=== PATIENT | male | born 1960 | race Caucasian/White ===

== ENCOUNTER 2017-06-24 21:34 | Observation (INO) ==
[2017-06-24] MEDS ORDERED: Aspirin 81 MG TAB.CHEW PO ONE (21:44)
--- NOTE | 2017-06-24 21:57 | Emergency Department Note ---
Disposition Clinical Impression: Chest pain Qualifiers: Chest pain type: unspecified Qualified Code(s): R07.9 - Chest pain, unspecified Disposition: Admitted As Inpatient Condition: Good Referrals: Maximo Jiménez MD [Partnered Physician] - Forms: ED Satisfaction Letter Time of Disposition: 22:55 Chest Pain HPI - General Chief Complaint: ED Chest Pain Stated Complaint: "Stent Placed 2wk Ago/CP/Pressure" Time Seen by Provider: 06/24/17 21:44 Source: patient Mode of arrival: ambulatory Limitations: no limitations Vital Signs Reviewed: Yes Nursing Notes Reviewed: Yes - History of Present Illness HPI Narrative: 56-year-old male who is status post stent placement a couple weeks ago in [place] comes in today with pressure-like chest discomfort. Patient does have a history of previous stroke a year ago. The patient had the stent placed in [place]. Patient's risk factor include a strong family history, hypertension, high cholesterol. Pt complaint: chest pain Onset (ago): [employer] Duration: constant Onset: during rest Pain Location: substernal, left chest Severity: moderate Severity scale (1-10): 7 Quality: tightness, aching Pain Radiation: none Improves with: nothing Worsens with: nothing Context: recent surgery (Stent placed 2 weeks ago) Treatments prior to arrival chest pain: none - Related Data Home Medications Medication Instructions Recorded Confirmed Allopurinol [Zyloprim] 300 mg PO DAILY 12/06/14 12/06/14 Gabapentin [Neurontin] 300 mg PO TID 12/06/14 12/06/14 Tizanidine [Zanaflex] 4 mg PO DAILY 12/06/14 12/06/14 Previous Rx's Medication Instructions Recorded Naproxen [Naprosyn] 500 mg PO BID #14 tablet 12/06/14 Allergies Allergy/AdvReac Type Severity Reaction Status Date / Time No Known Allergies Allergy Verified 12/06/14 16:33 All systems ED: reviewed and negative except as stated. Constitutional: Denies: fever, chills, weakness, weight change Eyes: Denies: eye pain, eye discharge, vision change ENT ED: Denies: ear pain, throat pain, dental pain, hearing loss, epistaxis, congestion, dysphagia Cardiovascular: Reports: chest pain. Denies: palpitations, dyspnea on exertion , edema, syncope Respiratory: Denies: cough, dyspnea, wheezes, hemoptysis, stridor Gastrointestinal: Denies: abdominal pain, nausea, vomiting, diarrhea, constipation, hematemesis, melena, hematochezia Genitourinary: Denies: urgency, dysuria, frequency, hematuria Musculoskeletal: Denies: back pain, neck pain, arthralgia, myalgia Integumentary: Denies: rash, abrasion, lesions Neurological: Denies: headache, weakness, numbness, paresthesias, confusion, abnormal gait, vertigo Psychiatric: Denies: anxiety, depression, suicidal thoughts, homicidal thoughts , auditory hallucinations, visual hallucinations Endocrine: Denies: fatigue Hematological/Lymphatic: Denies: easy bleeding, easy bruising Allergic/Immunologic: Denies: facial swelling, urticaria Chest Pain PMH - Past Medical History Medical history: Reports: atrial fibrillation, hypertension Psychiatric history: Reports: no psych history - Social History Smoking Status: Never smoker Alcohol use: Reports: occasionally Drug use: Reports: marijuana Physical Exam - General Limitations: no limitations General appearance: alert, in no apparent distress - Head Head exam: atraumatic, normocephalic, normal inspection - Eye Eye exam: Present: normal appearance, PERRL, EOMI - ENT ENT exam: normal exam, normal oropharynx, mucous membranes moist - Neck Neck exam: Present: normal inspection, full ROM, trachea midline - Chest Chest inspection: Present: normal inspection, symmetric chest wall rise - Respiratory Respiratory exam: Present: normal lung sounds bilaterally - Cardiovascular Cardiovascular exam: Present: regular rate, normal rhythm, normal heart sounds - Abdominal Exam Abdominal exam: Present: soft, Non-Tender. Absent: tenderness, distention, guarding, rebound, rigidity - Extremities Exam Extremities exam: Present: normal inspection, full ROM. Absent: tenderness, pedal edema - Expanded Lower Extremity Exam Gait: observed and normal - Back Exam Back exam: Present: normal inspection, full ROM. Absent: tenderness - Neurological Exam Neurological exam: Present: alert, oriented X3 - Psychiatric Psychiatric exam: Present: normal affect, normal mood - Skin Skin exam: Present: warm, dry, intact, normal color Course - Reevaluation(s) Reevaluation #1: 56-year-old who underwent cardiac catheter and stent placement 2 weeks ago in [place] comes in with chest pressure. Initial troponin is negative, EKG is negative. Chest x-ray shows a questionable rib fracture however the patient clinically is nontender. Time: 22:54 - Consultations Consultation #1: Discussed with Dr. Moore, admit. Time: 22:56 Vital Signs Temperature 98.5 F 06/24/17 21:38 Pulse Rate 115 06/24/17 21:38 Respiratory Rate 16 06/24/17 21:38 Blood Pressure 157/72 06/24/17 21:38 O2 Sat by Pulse Oximetry 100 06/24/17 21:38 Temperature 98.5 F 06/24/17 21:38 Pulse Rate 99 06/24/17 22:00 Respiratory Rate 16 06/24/17 22:00 Blood Pressure 125/80 06/24/17 22:00 O2 Sat by Pulse Oximetry 96 06/24/17 22:00 Oxygen Delivery Oxygen Delivery Room Air Chest Pain - Lab Data Lab results reviewed: Yes I reviewed the patient's lab results. Result diagrams: 06/24/17 21:58 06/24/17 21:58 Lab Results 06/24/17 06/24/17 06/24/17 Range/Units 21:58 21:58 21:58 WBC 12.8 H (4.3-11.1) K/mcL RBC 4.68 (4.19-5.50) M/mcL Hgb 13.7 (12.9-16.9) g/dL Hct 40.0 (37.5-50.1) % MCV 85.5 (83.0-100.0) fL MCH 29.3 (28.0-33.3) pg MCHC 34.3 (31.6-35.5) g/dL RDW 13.7 (11.5-14.5) % Plt Count 321 (140-400) K/mcL MPV 9.8 (9.4-12.4) fL Immature Gran % 0.5 (0-4) % Seg Neutrophils % 61.9 % Lymphocytes % 27.8 % Monocytes % 8.6 % Eosinophils % 0.6 % Basophils % 0.6 % Neutrophils # 7.9 (1.6-8.9) K/mcL Lymphocytes # 3.6 (0.6-4.6) K/mcL Monocytes # 1.1 (0.0-1.3) K/mcL Eosinophils # 0.1 (0.0-0.6) K/mcL Basophils # 0.1 (0.0-0.2) K/mcL PT 11.8 (9.4-12.1) Seconds INR 1.1 APTT 30.9 (26.0-36.0) Seconds Sodium (136-145) mEq/L Potassium (3.5-5.1) mEq/L Chloride (98-107) mEq/L Carbon Dioxide (23-29) mEq/L BUN (6-20) mg/dL Creatinine (0.70-1.30) mg/dL Est GFR ( Amer) (> 60) Est GFR (Non-Af Amer) (> 60) BUN/Creatinine Ratio (6-26) Glucose (70-105) mg/dL Calculated Osmolality (280-300) Calcium (8.6-10.3) mg/dL Troponin I (< 0.04) ng/mL B-Natriuretic Peptide 20 (Less than 100) pg/mL 06/24/17 Range/Units 21:58 WBC (4.3-11.1) K/mcL RBC (4.19-5.50) M/mcL Hgb (12.9-16.9) g/dL Hct (37.5-50.1) % MCV (83.0-100.0) fL MCH (28.0-33.3) pg MCHC (31.6-35.5) g/dL RDW (11.5-14.5) % Plt Count (140-400) K/mcL MPV (9.4-12.4) fL Immature Gran % (0-4) % Seg Neutrophils % % Lymphocytes % % Monocytes % % Eosinophils % % Basophils % % Neutrophils # (1.6-8.9) K/mcL Lymphocytes # (0.6-4.6) K/mcL Monocytes # (0.0-1.3) K/mcL Eosinophils # (0.0-0.6) K/mcL Basophils # (0.0-0.2) K/mcL PT (9.4-12.1) Seconds INR APTT (26.0-36.0) Seconds Sodium 139 (136-145) mEq/L Potassium 3.7 (3.5-5.1) mEq/L Chloride 102 (98-107) mEq/L Carbon Dioxide 28 (23-29) mEq/L BUN 14 (6-20) mg/dL Creatinine 1.37 H (0.70-1.30) mg/dL Est GFR ( Amer) > 60 (> 60) Est GFR (Non-Af Amer) 54 L (> 60) BUN/Creatinine Ratio 10 (6-26) Glucose 100 (70-105) mg/dL Calculated Osmolality 289 (280-300) Calcium 10.7 H (8.6-10.3) mg/dL Troponin I < 0.03 (< 0.04) ng/mL B-Natriuretic Peptide (Less than 100) pg/mL - Radiology Data Radiology results reviewed: Yes I reviewed the patient's radiology results. Chest X-Ray 06/24/17 21:44 IMPRESSION: Possible rib fracture. Recommend rib series or CT for further evaluation. D/ / Pepe Obrien MD / Pepe Obrien MD Interpreting Provider: Pepe Obrien MD - EKG Data EKG attestation: Yes I reviewed and interpreted this EKG. EKG shows normal: sinus rhythm Rate: normal Rhythm: NSR [place]/QRS: normal Interpretation: nonspecific ST-T wave changes Heart Score - Score History: Moderately Suspicious EKG: Normal Age: 45-65 Risk Factors: Equal/Greater than 3 risk factor or history of atherosclerotic disease Troponin: Less than normal limit HEART Score Total: 4
[2017-06-24 22:10] LABS: Basophils # 0.1 K/mcL (0.0-0.2); Basophils % 0.6 %; Eosinophils # 0.1 K/mcL (0.0-0.6); Eosinophils % 0.6 %; Hemoglobin 13.7 g/dL (12.9-16.9); Immature Granulocytes % 0.5 % (0-4); Lymphocytes # 3.6 K/mcL (0.6-4.6); Lymphocytes % 27.8 %; Mean Corpuscular HGB Conc 34.3 g/dL (31.6-35.5); Mean Corpuscular Hemoglobin 29.3 pg (28.0-33.3); Mean Corpuscular Volume 85.5 fL (83.0-100.0); Mean Platelet Volume 9.8 fL (9.4-12.4); Monocytes # 1.1 K/mcL (0.0-1.3); Monocytes % 8.6 %; Neutrophils # 7.9 K/mcL (1.6-8.9); Platelet Count 321 K/mcL (140-400); Red Blood Count 4.68 M/mcL (4.19-5.50); Red Cell Distribution Width 13.7 % (11.5-14.5); Segmented Neutrophils % 61.9 %
[2017-06-24 22:22] LABS: INR 1.1; Prothrombin Time 11.8 Seconds (9.4-12.1)
[2017-06-24 22:25] LABS: Activated Partial Thrombo Time 30.9 Seconds (26.0-36.0)
[2017-06-24 22:32] LABS: BUN/Creatinine Ratio 10 (6-26); Blood Urea Nitrogen 14 mg/dL (6-20); Calcium 10.7 mg/dL (8.6-10.3); Carbon Dioxide 28 mEq/L (23-29); Chloride 102 mEq/L (98-107); Glucose 100 mg/dL (70-105); Osmolality,Calculated 289 (280-300); Potassium 3.7 mEq/L (3.5-5.1); Sodium 139 mEq/L (136-145); Troponin I < 0.03 ng/mL (< 0.04); eGFR For African Americans > 60 (> 60); eGFR For Non-African Americans 54 (> 60)
[2017-06-25] MEDS ORDERED: Acetaminophen 325 MG TABLET PO PRN (01:05)
[2017-06-25] MEDS ORDERED: Naloxone 0.4 MG/ML INJ IVP PRN (01:05)
[2017-06-25] MEDS ORDERED: Nitroglycerin 0.4 MG TAB.SUBL SL PRN (01:10)
[2017-06-25] MEDS ORDERED: 0.9 % Sodium Chloride 1,000 ML IVC SCH (01:15)
[2017-06-25] MEDS: *HR* Heparin 5,000 UNIT/ML VIAL SQ SCH ×2 (01:48→12:16)
--- NOTE | 2017-06-25 02:15 | Internal Med History&Physical ---
Date of Encounter: 06/25/17 Time of Encounter: 00:45 Assessment and Plan (1) Chest pain Current visit: Yes Status: Acute 1. WIll cycle troponins and EKG's. 2. Will order CT chest to further delineate questionable rib abnormality. Patient denies chest wall trauma. 3. Will order ECHO. 4. Consult cardiology given recent PCI/stent ~ 2 weeks ago. Qualifiers: Chest pain type: precordial pain Qualified Code(s): R07.2 - Precordial pain (2) Hypertension Current visit: Yes Status: Chronic 1. Continue home meds as appropriate. 2. Monitor BP and adjust meds as necessary. Qualifiers: Hypertension type: essential hypertension Qualified Code(s): I10 - Essential (primary) hypertension (3) DVT prophylaxis Current visit: Yes Status: Acute 1. Heparin SQ. Internal Medicine - H&P: HPI Chief complaint: chest pain Admitted From: Emergency Dept Plans for Post Hospital Care: Home History of present illness: Mr. Sheehan is a 56 year old male who presents to the ER today with complaints of chest pain and shortness of breath. Symptoms started earlier in the day when he was moving some furniture and boxes at his father's house. Symptoms did not resolve and persisted. He therefore came to the ER for evaluation. Workup was negative, but he continued to have chest pain. He was admitted to hospitalist service for further workup and care. Upon my assessment of the patient, he has minimal chest pain now, roughly 1-2 out of 10. Patient states he had a recent left heart catheterization and stent placement about 2 weeks ago in [place] where he resides. He is up in [place] visiting his father helping take care of his father. He is originally from [facility] but moved to [place] many years ago. He has never had an NV. He had a stress test several weeks ago which was abnormal. This prompted him and his physicians to proceed with left heart catheterization where he was found to have coronary disease and required angioplasty and stenting. He was doing well until earlier today/yesterday when he developed the chest pain. He denies any fevers, cough, congestion, vomiting, or diarrhea. Past Med Surg Social Fam HX - Past Medical History Attestation: Yes The following information was validated with the patient. Source: patient, other (ER notes) Medical history: coronary artery disease, CVA, hypertension Psychiatric history: no psych history - Past Surgical History Surgical History: angioplasty/stent - Social History Smoking Status: Never smoker Smokeless Tobacco Status: No Alcohol use: occasionally Drug use: marijuana Current living situation: Home, With Family Activity Level: Independent ambulation Recent Out of Country Travel Within the Last 8 Weeks: No - Family History Mother Age: 68 Living Status: Cause of : lymphoma Hx Family Cancer: Yes Father Age: 80 Living Status: Still Living Hx Family Cardiac Disorders: Yes Internal Medicine - H&P: Meds Allopurinol [Zyloprim] 300 mg PO DAILY 12/06/14 [History] Gabapentin [Neurontin] 600 mg PO TID 12/06/14 [History] Tizanidine [Zanaflex] 4 mg PO TID 12/06/14 [History] Aspirin [Lo-Dose Aspirin EC] 81 mg PO DAILY 06/25/17 [History] Buspirone HCl [Buspar] 15 mg PO BID 06/25/17 [History] Clopidogrel [Plavix] 75 mg PO DAILY 06/25/17 [History] Lisinopril [Zestril] 10 mg PO DAILY 06/25/17 [History] Multivitamin [Multivitamins] 1 each PO DAILY 06/25/17 [History] Ubidecarenone [Coq10] 50 mg PO DAILY 06/25/17 [History] Vitamin B Complex Vit C No.4 [Super B Complex] 1 cap PO DAILY 06/25/17 [History] Vitamin E 1,000 unit PO DAILY 06/25/17 [History] 3 Allergy/AdvReac Type Severity Reaction Status Date / Time No Known Allergies Allergy Verified 12/06/14 16:33 - Constitutional Constitutional: no chills, no fever(s), no night sweats - EENT Eyes: no blurry vision, no change in vision Ears: no ear pain, no tinnitus Nose, mouth and throat: no nasal congestion, no sinus pressure, no sore throat - Cardiovascular Cardiovascular ROS IM: chest pain, diaphoresis, dyspnea, dyspnea on exertion, no orthopnea, no paroxysmal nocturnal dyspnea, no syncope - Respiratory Respiratory: no cough, no hemoptysis, no chest congestion, no excessive phlegm production, no change in phlegm color, no pain with cough - Gastrointestinal Gastrointestinal: no abdominal pain, no diarrhea, no hematemesis, no hematochezia, no melena, no nausea, no vomiting - Genitourinary Genitourinary ROS male: no dysuria, no flank pain, no hematuria - Musculoskeletal Musculoskeletal ROS IM: no arthralgias, no back pain - Integumentary Integumentary IM: no rash, no jaundice - Neurological Neurological ROS: no dizziness, no focal weakness, no frequent falls, no headache(s) - Psychiatric Psychiatric: no anxiety, no depression - Endocrine Endocrine IM: no polydipsia, no polyuria - Hematologic/Lymphatic Hematologic/Lymphatic: no easy bruising, no lymphadenopathy - Allergic/Immunologic Allergic/Immunologic: no wheezing, no GI upset with certain foods - Constitutional Vitals: Temp Pulse Resp BP Pulse Ox 98.7 F 96 15 107/70 100 06/24/17 23:42 06/24/17 23:42 06/24/17 23:42 06/24/17 23:42 06/24/17 23:42 General appearance: Present: cooperative, A&O X 3, pleasant, no acute distress, answers questions appropriately - Head Head exam: Present: atraumatic, normal inspection - Eye Eye exam: Present: EOMI, normal appearance, PERRL. Absent: scleral icterus Pupils: Present: normal accommodation - ENT ENT exam: Present: mucous membranes dry, normal exam, normal oropharynx - Neck Neck exam general surgery: Present: full ROM, supple. Absent: tenderness, nuchal rigidity, thyromegaly - Expanded Neck Exam Neck exam: Absent: carotid bruit - Respiratory Respiratory exam: Present: CTAB. Absent: chest wall tenderness, rales, respiratory distress, rhonchi, wheezes - Cardiovascular Cardiovascular exam: Present: RRR, +S1, +S2. Absent: diastolic murmur, systolic murmur - GI/Abdominal GI/Abdominal exam: Present: normal bowel sounds, soft. Absent: hepatomegaly, mass, splenomegaly, tenderness - Extremities Exam Extremities exam: Present: full ROM, normal capillary refill, radial pulses palpable and symmetrical. Absent: calf tenderness, joint swelling, tenderness, warm - Back Exam Back exam: Absent: CVA tenderness (L), CVA tenderness (R) - Neurological Exam Neurological exam: Present: alert, CN II-XII intact, oriented X3, no focal deficits, strengths equal and symetr throughout - Psychiatric Psychiatric exam: Present: normal affect, normal mood - Skin Skin exam: Present: dry, warm. Absent: rash Internal Med - H&P Results - Labs CBC & Chem 7: 06/24/17 21:58 06/24/17 21:58 - EKG Data -: EKG Interpreted by Myself - EKG Data Prior EKG available for review: no EKG comments: 06/25/17 02:18 NSR; no acute ST-T changes - Diagnostic Studies Chest x-ray Status: image reviewed by me (negative except for possible rib fracture -- noted by radiology)
[2017-06-25] MEDS: *HR* OxyCODONE Immed Rel 5 MG TABLET PO PRN ×2 (02:25→09:22)
[2017-06-25 06:22] LABS: Eosinophils % 1.6 %; Hematocrit 39.7 % (37.5-50.1); Hemoglobin 13.2 g/dL (12.9-16.9); Immature Granulocytes % 0.5 % (0-4); Lymphocytes % 36.2 %; Mean Corpuscular HGB Conc 33.2 g/dL (31.6-35.5); Mean Corpuscular Hemoglobin 28.9 pg (28.0-33.3); Mean Corpuscular Volume 86.9 fL (83.0-100.0); Mean Platelet Volume 9.9 fL (9.4-12.4); Monocytes % 7.7 %; Platelet Count 301 K/mcL (140-400); Red Blood Count 4.57 M/mcL (4.19-5.50); Red Cell Distribution Width 13.5 % (11.5-14.5); Segmented Neutrophils % 53.2 %
[2017-06-25 06:23] LABS: Basophils # 0.1 K/mcL (0.0-0.2); Basophils % 0.8 %; Eosinophils # 0.2 K/mcL (0.0-0.6); Lymphocytes # 3.7 K/mcL (0.6-4.6); Monocytes # 0.8 K/mcL (0.0-1.3); Neutrophils # 5.5 K/mcL (1.6-8.9)
[2017-06-25 06:35] LABS: INR 1.1; Prothrombin Time 11.5 Seconds (9.4-12.1)
[2017-06-25 06:38] LABS: Activated Partial Thrombo Time 30.4 Seconds (26.0-36.0); Troponin I < 0.03 ng/mL (< 0.04)
[2017-06-25 06:42] LABS: Alanine Aminotransferase 32 Units/L (7-52); Albumin 4.3 g/dL (3.5-5.7); Albumin/Globulin Ratio 1.7 (1.1-2.2); Alkaline Phosphatase 55 Units/L (34-104); Aspartate Amino Transferase 39 Units/L (13-39); BUN/Creatinine Ratio 10 (6-26); Bilirubin,Total 0.5 mg/dL (0.3-1.0); Blood Urea Nitrogen 13 mg/dL (6-20); Calcium 9.8 mg/dL (8.6-10.3); Carbon Dioxide 24 mEq/L (23-29); Chloride 107 mEq/L (98-107); Chol/HDL Ratio 4.4 (0-4.9); Cholesterol 157 mg/dL (< 200); Globulin 2.5 g/dL (2.4-3.5); Glucose 99 mg/dL (70-105); HDL Cholesterol 36 mg/dL (40-59); LDL Cholesterol,Calculated 86 mg/dL (0-99); Magnesium 2.2 mg/dL (1.6-2.6); Osmolality,Calculated 288 (280-300); Potassium 3.8 mEq/L (3.5-5.1); Sodium 139 mEq/L (136-145); Total Protein 6.8 g/dL (6.4-8.9); Triglycerides 174 mg/dL (< 150); eGFR For African Americans > 60 (> 60); eGFR For Non-African Americans 57 (> 60)
[2017-06-25] MEDS ORDERED: Aspirin Enteric Coated 81 MG Tablet PO SCH (09:00)
[2017-06-25] MEDS ORDERED: Multivit/Ca/Min/Fe/FA 1 TAB TABLET PO SCH (09:00)
[2017-06-25] MEDS: Gabapentin 300 MG CAPSULE PO SCH ×2 (09:22→14:02)
[2017-06-25] MEDS: tiZANidine 4 MG TABLET PO SCH ×2 (09:22→14:02)
--- NOTE | 2017-06-25 10:50 | Cardiology Consult Note ---
<Anali Cole - Last Filed: 06/25/17 10:53> Date of Encounter: 06/25/17 Time of Encounter: 10:30 Assessment and Plan (1) Chest pain Status: Acute Atypical chest pain symptoms; suspect musculoskeletal in etiology. Troponin negative thus far. No acute ST/T wave abnormalities. Reports recent PCI 2 weeks ago at [facility]. Reports compliance with DAPT. Continue asa and statin. Given hx of CAD, will add low dose betablocker. No further cardiac testing recommended. Anticipate sign-off once seen by Dr. Alfredo Laura. Qualifiers: Chest pain type: precordial pain Qualified Code(s): R07.2 - Precordial pain Discussion w patient/family: The assessment and plan as outlined above was discussed with the patient and/or family members who expressed understanding and agreement. All questions were answered. Thank you for involving us in the care of your patient. Please call with any questions. The patient will be discussed and reviewed with Dr. Alfredo Laura; changes to be made accordingly. History of Present Illness Consult date: 06/25/17 Requesting physician: Juni Kumar Consult reason: Chest pain Chief complaint: Chest pain History of present illness: Mr. Sheehan is a 56 year old male with PMHx significant for CAD s/p recent PCI and reported CVA (November 2016) who presented to the ED with complaints of chest pain after moving heavy boxes yesterday. Pain worsens with movement, especially when lifting arms over head. He reports PCI nearly 2 weeks ago after abnormal stress test. He states his PCP ordered stress test d/t CVA. He denies any anginal symptoms prior to event. Troponin negative x2. No acute ST/T wave abnormalities noted per ECG. Past Med Surg Social Fam HX - Past Medical History Attestation: Yes The following information was validated with the patient. Source: patient Medical history: coronary artery disease, CVA, hypertension Psychiatric history: no psych history - Past Surgical History Surgical History: angioplasty/stent - Social History Smoking Status: Never smoker Smokeless Tobacco Status: No Alcohol use: occasionally Drug use: marijuana - Family History Mother Age: 68 Living Status: Cause of : lymphoma Hx Family Cancer: Yes Father Age: 80 Living Status: Still Living Hx Family Cardiac Disorders: Yes Medications and Allergies Allopurinol [Zyloprim] 300 mg PO DAILY 12/06/14 [History] Gabapentin [Neurontin] 600 mg PO TID 12/06/14 [History] Tizanidine [Zanaflex] 4 mg PO TID 12/06/14 [History] Aspirin [Lo-Dose Aspirin EC] 81 mg PO DAILY 06/25/17 [History] Atorvastatin Calcium [Lipitor] 20 mg PO DAILY 06/25/17 [History] Buspirone HCl [Buspar] 15 mg PO BID 06/25/17 [History] Clopidogrel [Plavix] 75 mg PO DAILY 06/25/17 [History] Lisinopril [Zestril] 10 mg PO DAILY 06/25/17 [History] Multivitamin [Multivitamins] 1 each PO DAILY 06/25/17 [History] Ubidecarenone [Coq10] 50 mg PO DAILY 06/25/17 [History] Vitamin B Complex Vit C No.4 [Super B Complex] 1 cap PO DAILY 06/25/17 [History] Vitamin E 1,000 unit PO DAILY 06/25/17 [History] 3 Allergy/AdvReac Type Severity Reaction Status Date / Time No Known Allergies Allergy Verified 12/06/14 16:33 All Systems Review: The remainder of the systems were reviewed and are negative - Cardiovascular Cardiovascular: as per HPI Physical Examination Vital Signs, Last 4 Hours Temp Pulse Resp BP Pulse Ox 06/25/17 06:52 98.0 F 86 18 134/81 100 General: Conversant, No Apparent Distress HEENT: Atraumatic, Normocephaly, Mucus Membranes Moist Cardiac: Reg Rate and Rhythm, Normal S1 and S2 Lungs: Normal Breath Sounds Neuro: Alert and responsive Abdomen: Soft Skin: No rashes noted on visualized skin Extremities: No Edema, Normal Pulses Results 06/25/17 04:40 06/25/17 04:40 Lab Results 06/25/17 06/25/17 06/25/17 04:40 04:40 04:40 WBC 10.2 Hgb 13.2 Hct 39.7 Plt Count 301 INR 1.1 APTT 30.4 Sodium 139 Potassium 3.8 Chloride 107 Carbon Dioxide 24 BUN 13 Creatinine 1.30 Glucose 99 Calcium 9.8 Magnesium 2.2 Total Bilirubin 0.5 AST 39 ALT 32 Alkaline Phosphatase 55 Troponin I < 0.03 Active Medications Acetaminophen (Tylenol) 650 mg PO Q6HR PRN PRN Reason: Mild Pain/Fever Stop: 12/25/17 01:06 Allopurinol (Zyloprim) 300 mg PO DAILY [facility] Stop: 12/25/17 09:01 Last Admin: 06/25/17 09:22 Dose: 300 mg Aspirin (Aspirin Ec) 81 mg PO DAILY [facility] Stop: 12/25/17 09:01 Last Admin: 06/25/17 09:22 Dose: 81 mg Buspirone HCl (Buspar) 15 mg PO BID [facility] Stop: 12/25/17 09:01 Last Admin: 06/25/17 09:22 Dose: 15 mg Clopidogrel Bisulfate (Plavix) 75 mg PO DAILY [facility] Stop: 12/25/17 09:01 Last Admin: 06/25/17 09:22 Dose: 75 mg Gabapentin (Neurontin) 600 mg PO TID [facility] Stop: 12/25/17 09:01 Last Admin: 06/25/17 09:22 Dose: 600 mg Heparin Sodium (Porcine) (Heparin) 5,000 unit SQ Q8HCO [facility] Stop: 12/25/17 01:16 Last Admin: 06/25/17 01:48 Dose: 5,000 unit Sodium Chloride (0.9 % Sodium Chloride) 1,000 mls @ 100 mls/hr IVC .Q10H [facility] Stop: 06/25/17 21:14 Last Admin: 06/25/17 01:49 Dose: 100 mls/hr Multivitamins/Calcium (Thera M Plus) 1 tab PO DAILY [facility] Stop: 12/25/17 09:01 Last Admin: 06/25/17 09:22 Dose: 1 tab Naloxone HCl (Narcan) 0.4 mg IVP Q2MIN PRN PRN Reason: SEE COMMENTS Stop: 12/25/17 01:06 Nitroglycerin (Nitroglycerin) 0.4 mg SL Q5MIN PRN PRN Reason: Chest Pain Stop: 12/25/17 01:11 Oxycodone HCl (Roxicodone) 10 mg PO Q6HR PRN PRN Reason: Chest Pain Stop: 12/25/17 01:06 Last Admin: 06/25/17 09:22 Dose: 10 mg Tizanidine HCl (Zanaflex) 4 mg PO TID [facility] Stop: 12/25/17 09:01 Last Admin: 06/25/17 09:22 Dose: 4 mg - Imaging and Cardiology Other Results: 12 hour tele: avg HR=89 SR. No significant event noted. - EKG Interpretation EKG results cardiology: personally reviewed Consult Discharge Plan - Plan Instructions: Chest Pain (DC), Pulmonary Nodules (DC) Additional Instructions: A CT scan of her chest showed multiple pulmonary nodules measuring up to 6 mm. It is recommended that you have a repeat chest CT in 12 months. Please follow- up with your primary care physician to arrange. Referrals: NONE,PCP [Primary Care Provider] - <Alfredo Laura - Last Filed: 07/02/17 13:37> Date of Encounter: 07/02/17 - Attending Attestation I have personally performed a face to face evaluation on this patient. I have reviewed and agree with the care plan. History and Exam by me shows: Atypical chest pain. If ALEX negative, don't expect further work up will be needed. Assessment and Plan Discussion w patient/family: The assessment and plan as outlined above was discussed with the patient and/or family members who expressed understanding and agreement. All questions were answered. Thank you for involving us in the care of your patient. Please call with any questions. History of Present Illness History of present illness: Mr. Sheehan is a 56 year old male All Systems Review: The remainder of the systems were reviewed and are negative Results 06/25/17 04:40 06/25/17 04:40
[2017-06-25] MEDS ORDERED: Metoprolol XL (24 HR) Succ 25 MG TAB.ER.24H PO SCH (11:00)
[2017-06-25 11:25] VITALS: BP 123/58
--- NOTE | 2017-06-25 14:54 | Discharge Summary ---
Orders not resulted at time of discharge: Pending orders 06/25/17 06:00 ECG 12 lead ECG [ECG] AM 0600 Date of Encounter: 06/25/17 Time of Encounter: 14:51 - Discharge Diagnosis (1) CAD (coronary artery disease) Priority: Primary Status: Acute Qualifiers: Coronary Disease-Associated Artery/Lesion type: [place] artery [place] vs. transplanted heart: [place] heart Associated angina: without angina Qualified Code(s): I25.10 - Atherosclerotic heart disease of [place] coronary artery without angina pectoris (2) Hypertension Priority: Secondary Status: Chronic Qualifiers: Hypertension type: essential hypertension Qualified Code(s): I10 - Essential (primary) hypertension Hospital course: Mr. Sheehan is a 56 year old male with PMH CAD and hypertension who presented to [facility] on 06/24/2017 with complaints of chest pain. He recently underwent a left heart catheterization in [place] with successful PCI per patient report. He reports compliance with dual antiplatelet therapy. Presented with chest pain that occurred after heavy lifting. Serial troponins negative, EKG without acute ST changes. Chest CT with numerous lung nodules measuring up to 6 mm otherwise non-acute. TTE with EF 55%, mild diastolic dysfunction, no valvular abnormalities, no wall motion abnormalities. Evaluated by cardiology who suspected atypical chest pain, likely musculoskeletal as chest pain occurred after lifting heavy object and is reproducible on exam. No further cardiac workup indicated. Patient advised to return to ER if chest pain/SOB recurs. 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 Discharge discussed with: patient, family - Time Spent with Patient Total time spent providing and/or coordinating discharge services: - Discharge Medications Home Medications: Allopurinol [Zyloprim] 300 mg PO DAILY 12/06/14 [History] Gabapentin [Neurontin] 600 mg PO TID 12/06/14 [History] Tizanidine [Zanaflex] 4 mg PO TID 12/06/14 [History] Aspirin [Lo-Dose Aspirin EC] 81 mg PO DAILY 06/25/17 [History] Atorvastatin Calcium [Lipitor] 20 mg PO DAILY 06/25/17 [History] Buspirone HCl [Buspar] 15 mg PO BID 06/25/17 [History] Clopidogrel [Plavix] 75 mg PO DAILY 06/25/17 [History] Lisinopril [Zestril] 10 mg PO DAILY 06/25/17 [History] Multivitamin [Multivitamins] 1 each PO DAILY 06/25/17 [History] Ubidecarenone [Coq10] 50 mg PO DAILY 06/25/17 [History] Vitamin B Complex Vit C No.4 [Super B Complex] 1 cap PO DAILY 06/25/17 [History] Vitamin E 1,000 unit PO DAILY 06/25/17 [History] Allergies/Adverse Reactions: 3 Allergy/AdvReac Type Severity Reaction Status Date / Time No Known Allergies Allergy Verified 12/06/14 16:33 Date of admission: 06/24/17 23:10 Primary care physician: PCP NONE Consults: 06/25/17 01:08 Consult to Physician [CONS] Routine Consulting Provider: Melissa Stack Reason for Consult: chest pain; recent PCI/stent 2 weeks ago in [place] Call Completed: No Discharging clinician: Fernanda Harley Anticipated date of discharge: 06/25/17 - Constitutional Vitals: Temp Pulse Resp BP Pulse Ox 98.7 F 95 18 123/58 97 06/25/17 11:23 06/25/17 11:23 06/25/17 11:23 06/25/17 11:23 06/25/17 11:23 General appearance: Present: cooperative, A&O X 3, pleasant, no acute distress, answers questions appropriately - Head Head exam: Present: atraumatic, normocephalic - Eye Eye exam: Present: PERRL, conjuntiva pink, sclera anicteric Pupils: Present: PERRL - Neck Neck exam general surgery: Present: supple, trachea midline. Absent: lymphadenopathy - Respiratory Respiratory exam: Present: chest wall tenderness, CTAB. Absent: accessory muscle use, rales, rhonchi, wheezes - Cardiovascular Cardiovascular exam: Present: RRR, +S1, +S2. Absent: diastolic murmur, gallop, rubs, systolic murmur - GI/Abdominal GI/Abdominal exam: Present: normal bowel sounds, soft, no peritoneal signs. Absent: distended, tenderness - Extremities Exam Extremities exam: Present: warm, radial pulses palpable and symmetrical. Absent : calf tenderness, cyanotic, pedal edema - Neurological Exam Neurological exam: Present: CN II-XII intact, oriented X3, no focal deficits. Absent: pronater drift, facial droop, speech deficit - Skin Skin exam: Present: dry, intact - Patient Status Disposition: Home, Self-Care Condition: Good Functional capacity at discharge: independent ambulation Overall status at discharge: patient is back to baseline - Discharge Instructions Instructions: Pulmonary Nodules (DC), Chest Pain (DC) Follow Up With: NONE,PCP [Primary Care Provider] - Additional Instructions: A CT scan of her chest showed multiple pulmonary nodules measuring up to 6 mm. It is recommended that you have a repeat chest CT in 12 months. Please follow- up with your primary care physician to arrange. - Diet and Activity Activity: increase activity as tolerated Diet: advance to your usual diet
--- NOTE | 2017-06-26 16:23 | Electrocardiograph Report ---
[place] [id number] Test Date: 2017-06-24 Pat Name: Parrish Sheehan Department: 104 Room: 3B33 Gender: M [employer]: : 1960 Requested By: Alfredo Hernandez Order Number: [id number] Reading MD: Grover Humphries DO Measurements Intervals [place] Rate: 110 P: 5 ID: 119 QRS: 79 QRSD: 98 T: 70 QT: 323 QTc: 388 Interpretive Statements SINUS TACHYCARDIA WITH SHORT ID INTERVAL NONSPECIFIC ST & T-WAVE ABNORMALITY Electronically Signed On 06-26-2017 16:21:38 EST by Grover Humphries DO
== END 2017-06-25 16:21 | disposition home or self-care (01) ==
LOC: 3BNU 21:34 → EMEROO 21:34 → 3BNU 23:20
PROVIDERS: ADMIT Pediatrics; ATTEND Registered Nurse

== ENCOUNTER 2019-10-31 02:40 | Observation (INO) ==
[2019-10-31 03:00] LABS: Basophils # 0.1 K/mcL (0.0-0.2); Eosinophils # 0.3 K/mcL (0.0-0.6); Eosinophils % 3.1 %; Hemoglobin 14.4 g/dL (12.9-16.9); Immature Granulocytes % 1.2 % (0-4); Lymphocytes # 3.1 K/mcL (0.6-4.6); Lymphocytes % 37.3 %; Mean Corpuscular HGB Conc 32.7 g/dL (31.6-35.5); Mean Corpuscular Hemoglobin 29.4 pg (28.0-33.3); Mean Corpuscular Volume 89.8 fL (83.0-100.0); Mean Platelet Volume 10.1 fL (9.4-12.4); Monocytes # 0.8 K/mcL (0.0-1.3); Monocytes % 9.9 %; Neutrophils # 3.9 K/mcL (1.6-8.9); Platelet Count 275 K/mcL (140-400); Red Cell Distribution Width 13.6 % (11.5-14.5); Segmented Neutrophils % 47.5 %; White Blood Count 8.2 K/mcL (4.3-11.1)
[2019-10-31 03:21] LABS: Alanine Aminotransferase 78 Units/L (7-52); Albumin 4.2 g/dL (3.5-5.7); Albumin/Globulin Ratio 1.4 (1.1-2.2); Alkaline Phosphatase 58 Units/L (34-104); Aspartate Amino Transferase 70 Units/L (13-39); BUN/Creatinine Ratio 10 (6-26); Bilirubin,Total 0.5 mg/dL (0.3-1.0); Blood Urea Nitrogen 16 mg/dL (8-23); Calcium 9.7 mg/dL (8.6-10.3); Carbon Dioxide 25 mEq/L (23-29); Chloride 104 mEq/L (98-107); Glucose 128 mg/dL (70-105); Osmolality,Calculated 283 (280-300); Sodium 135 mEq/L (136-145); Total Protein 7.2 g/dL (6.4-8.9); Troponin I < 0.03 ng/mL (< 0.04); eGFR For African Americans 53 (> 60); eGFR For Non-African Americans 44 (> 60)
[2019-10-31 03:29] LABS: Bilirubin,Urine Negative (Negative); Blood,Urine Negative (Negative); Clarity,Urine Clear (Clear); Color,Urine Light-Yellow (Yellow); Glucose,Urine (UA) Normal (Normal); Ketones,Urine Negative (Negative); Leukocyte Esterase,Urine Negative (Negative); Nitrite,Urine Negative (Negative); PH,Urine 5.5 pH Units (5.0-8.0); Protein,Urine Negative (Neg-Trace); Specific Gravity,Urine 1.015 (1.010-1.025); Urobilinogen,Urine Normal (Normal)
[2019-10-31 03:34] LABS: Amphetamine Screen,Urine Positive ng/mL (Cutoff=1000); Barbiturate Screen,Urine Negative ng/mL (Cutoff=200); Benzodiazepines Screen,Urine Negative ng/mL (Cutoff=200); Cannabinoid Screen,Urine Positive ng/mL (Cutoff = 50); Cocaine Screen,Urine Negative ng/mL (Cutoff= 300); Opiate Screen,Urine Negative ng/mL (Cutoff=300); Phencyclidine Screen,Urine Negative ng/mL (Cutoff=25)
[2019-10-31 04:47] LABS: Ethanol < 10 mg/dL (Less than 10)
[2019-10-31 05:49] LABS: Creatine Kinase 675 Units/L (30-223); Magnesium 2.2 mg/dL (1.6-2.6); Phosphorous 4.9 mg/dL (2.7-4.5)
[2019-10-31] MEDS ORDERED: Ondansetron 4 MG/2 ML VIAL IVP PRN (06:15)
[2019-10-31] MEDS ORDERED: Naloxone 0.4 MG/ML INJ IVP PRN (06:15)
[2019-10-31] MEDS ORDERED: Perflutren Lipid Microsphere 1.3 ML in 0.9 % Sodium Chloride 8.7 ML IVP PRN (06:17)
[2019-10-31] MEDS: 0.9 % Sodium Chloride 1,000 ML IVC SCH ×4 (06:45→20:40)
[2019-10-31 07:15] LABS: Hepatitis B Surface Antigen Nonreactive (Nonreactive)
[2019-10-31 07:44] LABS: HIV-1&2 Antibody & p24 Ag Nonreactive (Nonreactive); Hepatitis B Core IgM Nonreactive (Nonreactive)
[2019-10-31 07:46] LABS: Hepatitis A Antibody IgM Nonreactive (Nonreactive)
[2019-10-31 10:11] LABS: Hepatitis C Virus Antibody Reactive (Nonreactive)
[2019-10-31] MEDS: *HR* Heparin 5,000 UNIT/ML VIAL SQ SCH ×2 (14:40→22:08)
[2019-10-31 14:56] LABS: Potassium,Urine 68.3 mEq/L
[2019-10-31] MEDS ORDERED: clonazePAM 0.5 MG TABLET PO ONE (20:48)
[2019-10-31] MEDS ORDERED: Melatonin 3 MG TABLET PO ONE (20:48)
[2019-10-31] MEDS ORDERED: Acetaminophen IV 500 MG/50 ML BAG IVPB PRN (21:10)
[2019-11-01] MEDS: *HR* Heparin 5,000 UNIT/ML VIAL SQ SCH (04:26)
[2019-11-01 06:24] LABS: Hematocrit 40.4 % (37.5-50.1); Hemoglobin 13.3 g/dL (12.9-16.9); Mean Corpuscular HGB Conc 32.9 g/dL (31.6-35.5); Mean Corpuscular Hemoglobin 29.4 pg (28.0-33.3); Mean Corpuscular Volume 89.2 fL (83.0-100.0); Mean Platelet Volume 11.7 fL (9.4-12.4); Platelet Count 181 K/mcL (140-400); Red Blood Count 4.53 M/mcL (4.19-5.50); Red Cell Distribution Width 13.7 % (11.5-14.5); White Blood Count 6.9 K/mcL (4.3-11.1)
[2019-11-01 06:35] LABS: Alanine Aminotransferase 58 Units/L (7-52); Albumin 3.3 g/dL (3.5-5.7); Albumin/Globulin Ratio 1.3 (1.1-2.2); Alkaline Phosphatase 46 Units/L (34-104); Aspartate Amino Transferase 55 Units/L (13-39); BUN/Creatinine Ratio 11 (6-26); Bilirubin,Total 0.6 mg/dL (0.3-1.0); Blood Urea Nitrogen 12 mg/dL (8-23); Calcium 8.7 mg/dL (8.6-10.3); Carbon Dioxide 20 mEq/L (23-29); Chloride 109 mEq/L (98-107); Globulin 2.5 g/dL (2.4-3.5); Glucose 103 mg/dL (70-105); Osmolality,Calculated 282 (280-300); Potassium 4.8 mEq/L (3.5-5.1); Sodium 136 mEq/L (136-145); Total Protein 5.8 g/dL (6.4-8.9); eGFR For African Americans > 60 (> 60); eGFR For Non-African Americans > 60 (> 60)
[2019-11-01 07:16] VITALS: BP 171/88
[2019-11-01] MEDS ORDERED: tiZANidine 4 MG TABLET PO PRN (07:51)
[2019-11-01] MEDS ORDERED: lisinopriL 10 MG TABLET PO SCH (09:00)
[2019-11-01] MEDS ORDERED: Gabapentin 400 MG CAPSULE PO SCH (09:00)
[2019-11-01] MEDS ORDERED: Aspirin Enteric Coated 81 MG Tablet PO SCH (09:00)
[2019-11-01] MEDS ORDERED: clonazePAM 0.5 MG TABLET PO SCH (09:00)
[2019-11-01] MEDS ORDERED: amLODIPine 5 MG TABLET PO SCH (09:00)
[2019-11-01] MEDS ORDERED: allopurinoL 300 MG TABLET PO SCH (09:00)
[2019-11-01] MEDS ORDERED: Cholecalciferol (D-3) 1,000 UNIT (25MCG) TABLET PO SCH (09:00)
== END 2019-11-01 11:45 | disposition home or self-care (01) ==
LOC: EMEROOARM 02:40 → ICNU 02:40 → SUATTDRO 06:07 → ICNU 06:30 → 3BNU 17:03
PROVIDERS: ADMIT Family Medicine; ATTEND Internal Medicine

== ENCOUNTER 2020-05-21 16:45 | Inpatient (IN) ==
[2020-05-21] MEDS ORDERED: 0.9 % Sodium Chloride 1,000 ML IVC ONE ×2 (16:59→18:06)
[2020-05-21] MEDS ORDERED: Ondansetron 4 MG/2 ML VIAL IVP ONE (16:59)
[2020-05-21 18:09] LABS: Troponin I 0.06 ng/mL (< 0.04)
[2020-05-21] MEDS ORDERED: Aspirin 81 MG TAB.CHEW PO STA (18:27)
[2020-05-21 18:49] LABS: Bacteria,Urine Few per hpf (None-Few); Bilirubin,Urine Negative (Negative); Blood,Urine Large (Negative); Budding Yeast,Urine Few per hpf (None Seen); Clarity,Urine Clear (Clear); Color,Urine Yellow (Yellow); Glucose,Urine (UA) 100 mg/dL (Normal); Ketones,Urine Negative (Negative); Leukocyte Esterase,Urine Moderate (Negative); Nitrite,Urine Negative (Negative); PH,Urine 6.5 pH Units (5.0-8.0); Protein,Urine >=300 mg/dL (Neg-Trace); RBC,Urine 0-3 per hpf (0-3); Specific Gravity,Urine 1.016 (1.010-1.025); Urobilinogen,Urine Normal (Normal); WBC,Urine TNTC per hpf (0-3)
[2020-05-21] MEDS ORDERED: cefTRIAXone 2,000 MG in Water for inj. (sterile) 20 ML IVP ONE (18:51)
[2020-05-21] MEDS ORDERED: Naloxone 0.4 MG/ML INJ IVP PRN (20:24)
[2020-05-21] MEDS ORDERED: Ondansetron 4 MG/2 ML VIAL IVP PRN (20:24)
[2020-05-21] MEDS ORDERED: Acetaminophen 325 MG TABLET PO PRN (20:24)
[2020-05-21 21:08] LABS: Amphetamine Screen,Urine Negative ng/mL (Cutoff=1000); Barbiturate Screen,Urine Negative ng/mL (Cutoff=200); Benzodiazepines Screen,Urine Negative ng/mL (Cutoff=200); Cannabinoid Screen,Urine Positive ng/mL (Cutoff = 50); Cocaine Screen,Urine Negative ng/mL (Cutoff= 300); Opiate Screen,Urine Negative ng/mL (Cutoff=300); Phencyclidine Screen,Urine Negative ng/mL (Cutoff=25)
[2020-05-21] MEDS: *HR* OxyCODONE Immed Rel 5 MG TABLET PO PRN (21:30)
[2020-05-21] MEDS: Ringers Solution, Lactated 1,000 ML IVC SCH (21:43)
[2020-05-22 00:46] LABS: Hematocrit 34.5 % (37.5-50.1); Hemoglobin 12.2 g/dL (12.9-16.9); Mean Corpuscular HGB Conc 35.4 g/dL (31.6-35.5); Mean Corpuscular Hemoglobin 28.8 pg (28.0-33.3); Mean Corpuscular Volume 81.4 fL (83.0-100.0); Mean Platelet Volume 11.6 fL (9.4-12.4); Platelet Count 269 K/mcL (140-400); Red Blood Count 4.24 M/mcL (4.19-5.50); Red Cell Distribution Width 13.2 % (11.5-14.5); White Blood Count 19.7 K/mcL (4.3-11.1)
[2020-05-22 01:06] LABS: Albumin 2.9 g/dL (3.5-5.7); Albumin/Globulin Ratio 0.9 (1.1-2.2); Bilirubin,Total 0.6 mg/dL (0.3-1.0); Calcium 7.6 mg/dL (8.6-10.3); Globulin 3.4 g/dL (2.4-3.5); Phosphorous 4.7 mg/dL (2.7-4.5); Potassium 3.5 mEq/L (3.5-5.1); Total Protein 6.3 g/dL (6.4-8.9)
[2020-05-22] MEDS: *HR* OxyCODONE Immed Rel 5 MG TABLET PO PRN ×3 (05:06→23:25)
[2020-05-22] MEDS: *HR* Heparin 5,000 UNIT/ML VIAL SQ SCH ×2 (05:10→17:49)
[2020-05-22 06:36] LABS: Basophils % 0.2 %; Hematocrit 33.8 % (37.5-50.1); Hemoglobin 11.6 g/dL (12.9-16.9); Immature Granulocytes % 1.3 % (0-4); Lymphocytes # 0.7 K/mcL (0.6-4.6); Lymphocytes % 3.8 %; Mean Corpuscular HGB Conc 34.3 g/dL (31.6-35.5); Mean Corpuscular Hemoglobin 28.2 pg (28.0-33.3); Mean Corpuscular Volume 82.2 fL (83.0-100.0); Mean Platelet Volume 11.8 fL (9.4-12.4); Monocytes # 1.3 K/mcL (0.0-1.3); Monocytes % 6.8 %; Platelet Count 268 K/mcL (140-400); Red Blood Count 4.11 M/mcL (4.19-5.50); Red Cell Distribution Width 13.2 % (11.5-14.5); Segmented Neutrophils % 87.9 %; White Blood Count 19.2 K/mcL (4.3-11.1)
[2020-05-22 06:46] LABS: Neutrophils # 16.9 K/mcL (1.6-8.9)
[2020-05-22] MEDS: Ringers Solution, Lactated 1,000 ML IVC SCH (06:48)
[2020-05-22 07:02] LABS: Calcium 7.7 mg/dL (8.6-10.3); Potassium 3.4 mEq/L (3.5-5.1)
[2020-05-22 07:05] LABS: Platelet Estimate Normal (Normal)
[2020-05-22] MEDS ORDERED: cefTRIAXone 1,000 MG in Water for inj. (sterile) 10 ML IVP SCH (09:00)
[2020-05-22] MEDS ORDERED: Piperacillin/Tazobactam 3.375 GM in 0.9 % Sodium Chloride Mini Bag 100 ML IVPB SCH (09:49)
[2020-05-22] MEDS ORDERED: Perflutren Lipid Microsphere 1.3 ML in 0.9 % Sodium Chloride 8.7 ML IVP PRN (09:51)
[2020-05-22] MEDS ORDERED: Vancomycin 1,750 MG/517.5 ML IV.SOLN IVPB ONE (09:58)
[2020-05-22] MEDS ORDERED: Vancomycin 1 EACH in 0.9 % Sodium Chloride 250 ML IVPB SCH (10:00)
[2020-05-22] MEDS ORDERED: 0.9 % Sodium Chloride 1,000 ML IVC SCH (11:15)
[2020-05-22] MEDS: Cefepime HCl 2,000 MG in Water for inj. (sterile) 20 ML IVP SCH (14:07)
[2020-05-22] MEDS: Sodium Bicarbonate 75 MEQ in 0.45 % Sodium Chloride 1,000 ML IVC SCH ×2 (14:08→23:19)
[2020-05-22 14:47] LABS: Uric Acid 6.9 mg/dL (2.3-7.6)
[2020-05-22 14:59] LABS: Albumin 2.8 g/dL (3.5-5.7); Calcium 7.8 mg/dL (8.6-10.3); Phosphorous 4.3 mg/dL (2.7-4.5); Potassium 3.6 mEq/L (3.5-5.1)
[2020-05-22] MEDS ORDERED: MetroNIDAZOLE 500 MG/100 ML 500 MG/100 ML BAG IVPB SCH (16:00)
[2020-05-22] MEDS: Morphine Sulfate 2 MG/ML SYRINGE IVP PRN ×2 (16:38→20:43)
[2020-05-23 02:35] LABS: Basophils # 0.2 K/mcL (0.0-0.2); Basophils % 0.8 %; Eosinophils % 0.2 %; Hematocrit 33.8 % (37.5-50.1); Hemoglobin 11.5 g/dL (12.9-16.9); Lymphocytes # 1.2 K/mcL (0.6-4.6); Lymphocytes % 6.2 %; Mean Corpuscular Hemoglobin 27.8 pg (28.0-33.3); Mean Corpuscular Volume 81.6 fL (83.0-100.0); Mean Platelet Volume 11.3 fL (9.4-12.4); Monocytes # 1.2 K/mcL (0.0-1.3); Monocytes % 6.2 %; Neutrophils # 16.3 K/mcL (1.6-8.9); Platelet Count 344 K/mcL (140-400); Red Blood Count 4.14 M/mcL (4.19-5.50); Red Cell Distribution Width 13.3 % (11.5-14.5); Segmented Neutrophils % 81.6 %
[2020-05-23 02:56] LABS: Potassium 3.4 mEq/L (3.5-5.1)
[2020-05-23 04:23] LABS: Platelet Estimate Normal (Normal); Toxic Granulation Present (Not Present)
[2020-05-23] MEDS: Morphine Sulfate 2 MG/ML SYRINGE IVP PRN ×2 (04:39→10:40)
[2020-05-23] MEDS ORDERED: Bacitracin 50,000 UNIT, Polymyxin B Sulfate 500,000 UNIT, Sodium Chloride IRRigation 1,... IR ONE (06:00)
[2020-05-23 06:14] LABS: INR 1.5; Prothrombin Time 17.1 Seconds (9.4-12.1)
[2020-05-23] MEDS: *HR* Heparin 5,000 UNIT/ML VIAL SQ SCH (06:24)
[2020-05-23] MEDS: *HR* OxyCODONE Immed Rel 5 MG TABLET PO PRN (08:20)
[2020-05-23] MEDS ORDERED: *HR* Propofol 200 MG/20 ML VIAL IVP ONE (11:08)
[2020-05-23] MEDS ORDERED: Lidocaine -MPF 2% 2 ML VIAL ONE (11:08)
[2020-05-23] MEDS ORDERED: Lidocaine -MPF 4% 5 ML AMPUL ONE (11:08)
[2020-05-23] MEDS ORDERED: Ondansetron 4 MG/2 ML VIAL ONE (11:08)
[2020-05-23] MEDS ORDERED: *HR* FentaNYL (PF) 100 MCG/2 ML VIAL ONE (11:08)
[2020-05-23] MEDS ORDERED: *HR* Rocuronium Bromide 50 MG/5 ML VIAL ONE ×2 (11:08→11:57)
[2020-05-23] MEDS ORDERED: *HR* Midazolam HCl 2 MG/2 ML VIAL ONE (11:10)
[2020-05-23] MEDS ORDERED: Perflutren Lipid Microsphere 1.3 ML in 0.9 % Sodium Chloride 8.7 ML IVP PRN (11:18)
[2020-05-23] MEDS: Cefepime HCl 2,000 MG in Water for inj. (sterile) 20 ML IVP SCH (11:52)
[2020-05-23] MEDS ORDERED: amLODIPine 5 MG TABLET PO SCH (12:00)
[2020-05-23] MEDS ORDERED: Dexmedetomidine HCl 400 MCG/100 ML MLS IVC ONE (12:50)
[2020-05-23] MEDS ORDERED: *HR* Magnesium Sulfate 1 GM/2 ML VIAL ONE (12:54)
[2020-05-23] MEDS ORDERED: Vancomycin 1,000 MG VIAL ONE (13:06)
[2020-05-23] MEDS ORDERED: *HR* HYDROMORPHONE 2 MG/ML VIAL ONE (14:47)
[2020-05-23] MEDS ORDERED: DAPTOmycin 750 MG in 0.9 % Sodium Chloride 100 ML IVPB SCH (15:00)
[2020-05-23] MEDS ORDERED: DAPTOmycin 600 MG in 0.9 % Sodium Chloride 100 ML IVPB SCH (15:00)
[2020-05-23] MEDS ORDERED: Albumin Human 5% 12.5 GM/250 ML IV.SOLN ONE (15:13)
[2020-05-23] MEDS ORDERED: Sugammadex Sodium 200 MG/2 ML VIAL IV ONE (15:59)
[2020-05-23] MEDS ORDERED: MetroNIDAZOLE 500 MG/100 ML 500 MG/100 ML BAG IVPB SCH (16:00)
[2020-05-23] MEDS: Sodium Bicarbonate 75 MEQ in 0.45 % Sodium Chloride 1,000 ML IVC SCH ×2 (16:15→16:16)
[2020-05-23] MEDS ORDERED: Ibuprofen 400 MG TABLET PO PRN (16:58)
[2020-05-23] MEDS ORDERED: Naloxone 0.4 MG/ML INJ IVP PRN (16:58)
[2020-05-23] MEDS ORDERED: NON-FORMULARY MEDICATION 1 EACH EACH (Sildenafil Citrate [Viagra] 50 MG) PO PRN (16:58)
[2020-05-23] MEDS ORDERED: Ondansetron 4 MG/2 ML VIAL IVP PRN (16:58)
[2020-05-23] MEDS: DAPTOmycin 750 MG in 0.9 % Sodium Chloride 100 ML IVPB SCH (21:57)
[2020-05-23] MEDS: MetroNIDAZOLE 500 MG/100 ML 500 MG/100 ML BAG IVPB SCH (23:47)
[2020-05-24] MEDS: *HR* OxyCODONE Immed Rel 5 MG TABLET PO PRN ×4 (01:09→20:43)
[2020-05-24 06:50] LABS: HCV Quant Interpretation DETECTED (Not Detected); HCV Quant Log 6.31 log IU/mL
[2020-05-24] MEDS: Cholecalciferol (D-3) 1,000 UNIT (25MCG) TABLET PO SCH (08:09)
[2020-05-24] MEDS: MetroNIDAZOLE 500 MG/100 ML 500 MG/100 ML BAG IVPB SCH ×2 (08:10→17:35)
[2020-05-24 08:18] LABS: Hematocrit 29.3 % (37.5-50.1); Hemoglobin 10.2 g/dL (12.9-16.9); Mean Corpuscular HGB Conc 34.8 g/dL (31.6-35.5); Mean Corpuscular Hemoglobin 28.7 pg (28.0-33.3); Mean Corpuscular Volume 82.3 fL (83.0-100.0); Platelet Count 419 K/mcL (140-400); Red Blood Count 3.56 M/mcL (4.19-5.50); Red Cell Distribution Width 13.2 % (11.5-14.5); White Blood Count 27.5 K/mcL (4.3-11.1)
[2020-05-24 08:19] LABS: Lymphocytes # 1.4 K/mcL (0.6-4.6)
[2020-05-24 08:42] LABS: Calcium 9.1 mg/dL (8.6-10.3); Potassium 3.5 mEq/L (3.5-5.1)
[2020-05-24 08:44] LABS: Monocytes # 2.5 K/mcL (0.0-1.3); Neutrophils # 21.5 K/mcL (1.6-8.9); Platelet Estimate Increased (Normal); Reactive Lymphocytes Present (Not Present)
[2020-05-24] MEDS ORDERED: lisinopriL 10 MG TABLET PO SCH (09:00)
[2020-05-24] MEDS ORDERED: allopurinoL 100 MG TABLET PO SCH (09:00)
[2020-05-24] MEDS: Cefepime HCl 2,000 MG in Water for inj. (sterile) 20 ML IVP SCH (13:00)
[2020-05-24] MEDS: amLODIPine 5 MG TABLET PO SCH (13:01)
[2020-05-24] MEDS ORDERED: *HR* Labetalol 20 MG/4 ML SYRINGE IVP ONE (22:21)
[2020-05-25 01:28] LABS: Hemoglobin 9.6 g/dL (12.9-16.9)
[2020-05-25 01:29] LABS: Mean Corpuscular HGB Conc 35.6 g/dL (31.6-35.5); Mean Corpuscular Volume 81.6 fL (83.0-100.0); Platelet Count 430 K/mcL (140-400); Red Blood Count 3.31 M/mcL (4.19-5.50); Red Cell Distribution Width 13.2 % (11.5-14.5)
[2020-05-25 01:36] LABS: White Blood Count 30.9 K/mcL (4.3-11.1)
[2020-05-25 01:48] LABS: Calcium 9.1 mg/dL (8.6-10.3); Potassium 3.6 mEq/L (3.5-5.1)
[2020-05-25 01:50] LABS: Lymphocytes # 2.5 K/mcL (0.6-4.6); Monocytes # 1.9 K/mcL (0.0-1.3); Neutrophils # 22.3 K/mcL (1.6-8.9); Platelet Estimate Normal (Normal); Reactive Lymphocytes Present (Not Present)
[2020-05-25 01:51] LABS: Anisocytosis 1+ (Not Present)
[2020-05-25] MEDS: tiZANidine 4 MG TABLET PO PRN ×3 (02:01→19:41)
[2020-05-25] MEDS: MetroNIDAZOLE 500 MG/100 ML 500 MG/100 ML BAG IVPB SCH ×2 (02:01→10:00)
[2020-05-25] MEDS: *HR* OxyCODONE Immed Rel 5 MG TABLET PO PRN ×2 (08:28→19:41)
[2020-05-25] MEDS ORDERED: Isovue-300 50ML VIAL INTRAART ONE (09:42)
[2020-05-25] MEDS: amLODIPine 5 MG TABLET PO SCH (10:38)
[2020-05-25] MEDS: Cholecalciferol (D-3) 1,000 UNIT (25MCG) TABLET PO SCH (10:38)
[2020-05-25] MEDS: Cefepime HCl 2,000 MG in Water for inj. (sterile) 20 ML IVP SCH (12:20)
[2020-05-25] MEDS: 0.9 % Sodium Chloride 500 ML IVC ONE ×2 (13:00→14:38)
[2020-05-25] MEDS ORDERED: *HR* FentaNYL (PF) 100 MCG/2 ML VIAL IVP PRN (13:02)
[2020-05-25] MEDS ORDERED: *HR* Midazolam HCl 2 MG/2 ML VIAL IVP PRN (13:02)
[2020-05-25] MEDS ORDERED: Lidocaine Viscous Oral Soln 15 ML SOLUTION MM PRN (13:02)
[2020-05-25] MEDS ORDERED: *HR* Midazolam HCl 5 MG/5 ML VIAL IVP ONE ×2 (13:14)
[2020-05-25] MEDS: 0.9 % Sodium Chloride 1,000 ML IVC SCH (14:45)
[2020-05-25] MEDS ORDERED: polyethylene glycoL 3350 17 GM POWD.PACK PO PRN (17:36)
[2020-05-25] MEDS: metroNIDAZOLE 500 MG TABLET PO SCH (18:28)
[2020-05-25] MEDS: DAPTOmycin 750 MG in 0.9 % Sodium Chloride 100 ML IVPB SCH (22:35)
[2020-05-26] MEDS: metroNIDAZOLE 500 MG TABLET PO SCH ×4 (00:21→20:26)
[2020-05-26] MEDS: Clindamycin 900 MG/50 ML 900 MG/50 ML IV.SOLN IVPB SCH ×3 (00:22→16:58)
[2020-05-26] MEDS: *HR* OxyCODONE Immed Rel 5 MG TABLET PO PRN ×4 (01:31→20:28)
[2020-05-26] MEDS: tiZANidine 4 MG TABLET PO PRN ×3 (01:31→20:28)
[2020-05-26] MEDS: 0.9 % Sodium Chloride 1,000 ML IVC SCH ×3 (01:33→20:25)
[2020-05-26 02:16] LABS: Mean Platelet Volume 10.6 fL (9.4-12.4); Red Cell Distribution Width 13.8 % (11.5-14.5)
[2020-05-26 02:18] LABS: Hematocrit 29.5 % (37.5-50.1); Mean Corpuscular HGB Conc 33.9 g/dL (31.6-35.5); Mean Corpuscular Hemoglobin 28.7 pg (28.0-33.3); Mean Corpuscular Volume 84.5 fL (83.0-100.0); Nucleated Red Blood Cells 0.1 /100 WBC (0); Platelet Count 436 K/mcL (140-400); Red Blood Count 3.49 M/mcL (4.19-5.50); White Blood Count 25.2 K/mcL (4.3-11.1)
[2020-05-26 02:31] LABS: Calcium 8.4 mg/dL (8.6-10.3); Potassium 3.5 mEq/L (3.5-5.1)
[2020-05-26 02:45] LABS: Lymphocytes # 2.5 K/mcL (0.6-4.6); Monocytes # 1.5 K/mcL (0.0-1.3); Neutrophils # 20.7 K/mcL (1.6-8.9)
[2020-05-26] MEDS: Cholecalciferol (D-3) 1,000 UNIT (25MCG) TABLET PO SCH (08:59)
[2020-05-26] MEDS: amLODIPine 5 MG TABLET PO SCH (09:00)
[2020-05-26] MEDS: Cefepime HCl 2,000 MG in Water for inj. (sterile) 20 ML IVP SCH (10:57)
[2020-05-26 19:55] LABS: HCV Genotype by Sequencing 1A OR 1B
[2020-05-27] MEDS: Clindamycin 900 MG/50 ML 900 MG/50 ML IV.SOLN IVPB SCH ×4 (00:28→23:07)
[2020-05-27] MEDS: *HR* OxyCODONE Immed Rel 5 MG TABLET PO PRN ×4 (00:29→20:14)
[2020-05-27] MEDS: 0.9 % Sodium Chloride 1,000 ML IVC SCH (05:46)
[2020-05-27] MEDS: amLODIPine 5 MG TABLET PO SCH (07:44)
[2020-05-27] MEDS: metroNIDAZOLE 500 MG TABLET PO SCH ×3 (07:44→20:15)
[2020-05-27] MEDS: Cholecalciferol (D-3) 1,000 UNIT (25MCG) TABLET PO SCH (07:44)
[2020-05-27 08:25] LABS: Basophils % 0.1 %; Eosinophils % 0.5 %; Monocytes % 4.6 %; Red Cell Distribution Width 13.7 % (11.5-14.5)
[2020-05-27 08:26] LABS: Eosinophils # 0.2 K/mcL (0.0-0.6); Hematocrit 27.4 % (37.5-50.1); Hemoglobin 9.4 g/dL (12.9-16.9); Immature Granulocytes % 17.1 % (0-4); Lymphocytes # 2.5 K/mcL (0.6-4.6); Lymphocytes % 7.8 %; Mean Corpuscular HGB Conc 34.3 g/dL (31.6-35.5); Mean Corpuscular Hemoglobin 28.6 pg (28.0-33.3); Mean Corpuscular Volume 83.3 fL (83.0-100.0); Mean Platelet Volume 10.1 fL (9.4-12.4); Monocytes # 1.5 K/mcL (0.0-1.3); Neutrophils # 22.4 K/mcL (1.6-8.9); Platelet Count 455 K/mcL (140-400); Red Blood Count 3.29 M/mcL (4.19-5.50); Segmented Neutrophils % 69.9 %
[2020-05-27 08:39] LABS: Calcium 8.2 mg/dL (8.6-10.3); Potassium 3.5 mEq/L (3.5-5.1)
[2020-05-27 08:41] LABS: White Blood Count 32.1 K/mcL (4.3-11.1)
[2020-05-27 09:44] LABS: Platelet Estimate Normal (Normal)
[2020-05-27] MEDS: Cefepime HCl 2,000 MG in Water for inj. (sterile) 20 ML IVP SCH ×2 (11:22→22:31)
[2020-05-27] MEDS: tiZANidine 4 MG TABLET PO PRN ×2 (14:36→20:15)
[2020-05-27] MEDS: DAPTOmycin 750 MG in 0.9 % Sodium Chloride 100 ML IVPB SCH (22:34)
[2020-05-28] MEDS: *HR* OxyCODONE Immed Rel 5 MG TABLET PO PRN ×4 (02:05→21:33)
[2020-05-28 04:47] LABS: Hematocrit 26.8 % (37.5-50.1); Hemoglobin 9.2 g/dL (12.9-16.9); Mean Corpuscular HGB Conc 34.3 g/dL (31.6-35.5); Mean Platelet Volume 10.2 fL (9.4-12.4)
[2020-05-28 04:49] LABS: Lymphocytes # 2.7 K/mcL (0.6-4.6); Mean Corpuscular Hemoglobin 28.8 pg (28.0-33.3); Platelet Count 481 K/mcL (140-400); Red Blood Count 3.19 M/mcL (4.19-5.50); Red Cell Distribution Width 13.7 % (11.5-14.5)
[2020-05-28 05:05] LABS: Calcium 8.4 mg/dL (8.6-10.3); Potassium 3.6 mEq/L (3.5-5.1)
[2020-05-28 05:09] LABS: Monocytes # 0.7 K/mcL (0.0-1.3); Neutrophils # 25.2 K/mcL (1.6-8.9); Reactive Lymphocytes Present (Not Present); Toxic Granulation Present (Not Present)
[2020-05-28 05:10] LABS: Anisocytosis 1+ (Not Present); Platelet Estimate Normal (Normal)
[2020-05-28] MEDS: tiZANidine 4 MG TABLET PO PRN (05:43)
[2020-05-28] MEDS: amLODIPine 5 MG TABLET PO SCH (08:05)
[2020-05-28] MEDS: metroNIDAZOLE 500 MG TABLET PO SCH ×3 (08:06→21:34)
[2020-05-28] MEDS: Cholecalciferol (D-3) 1,000 UNIT (25MCG) TABLET PO SCH (08:06)
[2020-05-28] MEDS: Clindamycin 900 MG/50 ML 900 MG/50 ML IV.SOLN IVPB SCH ×2 (08:06→15:24)
[2020-05-28] MEDS ORDERED: Isovue-370 500 ML BOTTLE IVP ONE (09:14)
[2020-05-28] MEDS ORDERED: 0.9 % Sodium Chloride 500 ML IVC ONE (10:20)
[2020-05-28] MEDS: Cefepime HCl 2,000 MG in Water for inj. (sterile) 20 ML IVP SCH ×2 (11:27→21:35)
[2020-05-28] MEDS: Simethicone 80 MG TAB.CHEW PO SCH (21:33)
[2020-05-28] MEDS: DAPTOmycin 750 MG in 0.9 % Sodium Chloride 100 ML IVPB SCH (21:35)
[2020-05-29 01:50] LABS: Hemoglobin 9.3 g/dL (12.9-16.9); Red Cell Distribution Width 14.3 % (11.5-14.5)
[2020-05-29 01:52] LABS: Hematocrit 27.2 % (37.5-50.1); Mean Corpuscular HGB Conc 34.2 g/dL (31.6-35.5); Mean Corpuscular Hemoglobin 28.9 pg (28.0-33.3); Mean Corpuscular Volume 84.5 fL (83.0-100.0); Mean Platelet Volume 10.2 fL (9.4-12.4); Platelet Count 491 K/mcL (140-400); Red Blood Count 3.22 M/mcL (4.19-5.50); White Blood Count 29.1 K/mcL (4.3-11.1)
[2020-05-29 02:07] LABS: Albumin 2.4 g/dL (3.5-5.7); Albumin/Globulin Ratio 0.7 (1.1-2.2); Bilirubin,Total 0.5 mg/dL (0.3-1.0); Calcium 8.3 mg/dL (8.6-10.3); Globulin 3.5 g/dL (2.4-3.5); Potassium 3.8 mEq/L (3.5-5.1); Total Protein 5.9 g/dL (6.4-8.9)
[2020-05-29 02:16] LABS: Lymphocytes # 2.9 K/mcL (0.6-4.6); Neutrophils # 25.6 K/mcL (1.6-8.9)
[2020-05-29 02:17] LABS: Anisocytosis 1+ (Not Present)
[2020-05-29 02:18] LABS: Platelet Estimate Normal (Normal)
[2020-05-29] MEDS: tiZANidine 4 MG TABLET PO PRN ×2 (05:46→17:11)
[2020-05-29] MEDS: Cholecalciferol (D-3) 1,000 UNIT (25MCG) TABLET PO SCH (08:59)
[2020-05-29] MEDS: metroNIDAZOLE 500 MG TABLET PO SCH ×3 (08:59→21:09)
[2020-05-29] MEDS: Simethicone 80 MG TAB.CHEW PO SCH ×2 (08:59→15:05)
[2020-05-29] MEDS: amLODIPine 5 MG TABLET PO SCH (08:59)
[2020-05-29] MEDS: Cefepime HCl 2,000 MG in Water for inj. (sterile) 20 ML IVP SCH ×2 (11:34→23:09)
[2020-05-29] MEDS: *HR* OxyCODONE Immed Rel 5 MG TABLET PO PRN ×2 (13:03→21:19)
[2020-05-29] MEDS: *HR* Heparin 5,000 UNIT/ML VIAL SQ SCH (17:02)
[2020-05-29] MEDS: DAPTOmycin 750 MG in 0.9 % Sodium Chloride 100 ML IVPB SCH (21:17)
[2020-05-29] MEDS: Acetaminophen 325 MG TABLET PO PRN (21:18)
[2020-05-30 01:48] LABS: Red Cell Distribution Width 14.7 % (11.5-14.5)
[2020-05-30 01:50] LABS: Hemoglobin 8.9 g/dL (12.9-16.9); Mean Corpuscular Hemoglobin 28.7 pg (28.0-33.3); Mean Corpuscular Volume 87.1 fL (83.0-100.0); Mean Platelet Volume 10.4 fL (9.4-12.4); Platelet Count 533 K/mcL (140-400); White Blood Count 24.4 K/mcL (4.3-11.1)
[2020-05-30 02:07] LABS: Albumin 2.6 g/dL (3.5-5.7); Albumin/Globulin Ratio 0.7 (1.1-2.2); Bilirubin,Total 0.4 mg/dL (0.3-1.0); Calcium 8.5 mg/dL (8.6-10.3); Globulin 3.5 g/dL (2.4-3.5); Potassium 4.2 mEq/L (3.5-5.1); Total Protein 6.1 g/dL (6.4-8.9)
[2020-05-30 02:14] LABS: Lymphocytes # 5.4 K/mcL (0.6-4.6); Monocytes # 0.5 K/mcL (0.0-1.3); Neutrophils # 17.6 K/mcL (1.6-8.9); Platelet Estimate Increased (Normal)
[2020-05-30] MEDS: *HR* OxyCODONE Immed Rel 5 MG TABLET PO PRN ×4 (02:41→21:25)
[2020-05-30] MEDS: *HR* Heparin 5,000 UNIT/ML VIAL SQ SCH ×2 (05:41→17:13)
[2020-05-30] MEDS: Cholecalciferol (D-3) 1,000 UNIT (25MCG) TABLET PO SCH (08:14)
[2020-05-30] MEDS: amLODIPine 5 MG TABLET PO SCH (08:14)
[2020-05-30] MEDS: metroNIDAZOLE 500 MG TABLET PO SCH ×3 (08:14→21:25)
[2020-05-30] MEDS: Acetaminophen 325 MG TABLET PO PRN (08:17)
[2020-05-30] MEDS: Cefepime HCl 2,000 MG in Water for inj. (sterile) 20 ML IVP SCH ×2 (11:46→22:15)
[2020-05-30] MEDS: tiZANidine 4 MG TABLET PO PRN ×2 (11:57→21:26)
[2020-05-30] MEDS: DAPTOmycin 750 MG in 0.9 % Sodium Chloride 100 ML IVPB SCH (21:22)
[2020-05-31 04:52] LABS: Basophils # 0.1 K/mcL (0.0-0.2); Basophils % 0.3 %; Eosinophils # 0.2 K/mcL (0.0-0.6); Eosinophils % 1.1 %; Hematocrit 26.1 % (37.5-50.1); Hemoglobin 8.7 g/dL (12.9-16.9); Lymphocytes # 1.8 K/mcL (0.6-4.6); Lymphocytes % 8.9 %; Mean Corpuscular HGB Conc 33.3 g/dL (31.6-35.5); Mean Corpuscular Hemoglobin 28.7 pg (28.0-33.3); Mean Corpuscular Volume 86.1 fL (83.0-100.0); Monocytes % 5.1 %; Platelet Count 520 K/mcL (140-400); Red Blood Count 3.03 M/mcL (4.19-5.50); Red Cell Distribution Width 14.6 % (11.5-14.5); Segmented Neutrophils % 81.6 %; White Blood Count 19.6 K/mcL (4.3-11.1)
[2020-05-31 05:11] LABS: Calcium 8.7 mg/dL (8.6-10.3); Potassium 4.1 mEq/L (3.5-5.1)
[2020-05-31] MEDS: *HR* Heparin 5,000 UNIT/ML VIAL SQ SCH ×2 (06:18→17:55)
[2020-05-31] MEDS: *HR* OxyCODONE Immed Rel 5 MG TABLET PO PRN ×4 (06:20→19:45)
[2020-05-31] MEDS ORDERED: Naloxone 0.4 MG/ML INJ IVP PRN (07:05)
[2020-05-31] MEDS ORDERED: Acetaminophen 325 MG TABLET PO PRN (07:05)
[2020-05-31] MEDS: Cholecalciferol (D-3) 1,000 UNIT (25MCG) TABLET PO SCH (08:53)
[2020-05-31] MEDS: metroNIDAZOLE 500 MG TABLET PO SCH ×3 (08:54→19:40)
[2020-05-31] MEDS: amLODIPine 5 MG TABLET PO SCH (08:55)
[2020-05-31] MEDS: Cefepime HCl 2,000 MG in Water for inj. (sterile) 20 ML IVP SCH ×2 (10:36→21:54)
[2020-05-31] MEDS: Furosemide 40 MG TABLET PO SCH (10:36)
[2020-05-31] MEDS: tiZANidine 4 MG TABLET PO PRN (18:02)
[2020-05-31] MEDS: DAPTOmycin 750 MG in 0.9 % Sodium Chloride 100 ML IVPB SCH (20:54)
[2020-06-01] MEDS: *HR* OxyCODONE Immed Rel 5 MG TABLET PO PRN ×4 (01:40→18:26)
[2020-06-01] MEDS: tiZANidine 4 MG TABLET PO PRN ×2 (03:23→21:16)
[2020-06-01] MEDS: *HR* Heparin 5,000 UNIT/ML VIAL SQ SCH ×2 (05:07→16:37)
[2020-06-01] MEDS: metroNIDAZOLE 500 MG TABLET PO SCH ×3 (08:45→21:15)
[2020-06-01] MEDS: Cholecalciferol (D-3) 1,000 UNIT (25MCG) TABLET PO SCH (08:45)
[2020-06-01] MEDS: Furosemide 40 MG TABLET PO SCH (08:45)
[2020-06-01] MEDS: amLODIPine 5 MG TABLET PO SCH (08:45)
[2020-06-01] MEDS: Cefepime HCl 2,000 MG in Water for inj. (sterile) 20 ML IVP SCH ×2 (11:48→22:23)
[2020-06-01 19:58] LABS: Adenovirus Not Detected (Not Detect); Coronavirus 229E Not Detected (Not Detect); Coronavirus HKU1 Not Detected (Not Detect); Coronavirus NL63 Not Detected (Not Detect); Coronavirus OC43 Not Detected (Not Detect); Human Metapneumovirus Not Detected (Not Detect); Human Rhinovirus/Enterovirus Not Detected (Not Detect); Influenza A Subtype 2009 H1 Not Detected (Not Detect); Influenza B Not Detected (Not Detect); Parainfluenza Virus 1 Not Detected (Not Detect); Parainfluenza Virus 2 Not Detected (Not Detect); Parainfluenza Virus 3 Not Detected (Not Detect); SARS-CoV-2 Not Detected (Not Detect)
[2020-06-01 19:59] LABS: Bordetella Pertussis Not Detected (Not Detect); Chlamydophila pneumoniae Not Detected (Not Detect); Mycoplasma pneumoniae Not Detected (Not Detect); Parainfluenza Virus 4 Not Detected (Not Detect); Respiratory Syncytial Virus Not Detected (Not Detect)
[2020-06-01] MEDS: DAPTOmycin 750 MG in 0.9 % Sodium Chloride 100 ML IVPB SCH (22:22)
[2020-06-02 01:18] LABS: Hematocrit 25.2 % (37.5-50.1); Hemoglobin 8.2 g/dL (12.9-16.9); Mean Corpuscular HGB Conc 32.5 g/dL (31.6-35.5); Mean Corpuscular Hemoglobin 28.4 pg (28.0-33.3); Mean Corpuscular Volume 87.2 fL (83.0-100.0); Mean Platelet Volume 11.3 fL (9.4-12.4); Platelet Count 517 K/mcL (140-400); Red Blood Count 2.89 M/mcL (4.19-5.50); Red Cell Distribution Width 14.6 % (11.5-14.5); White Blood Count 14.7 K/mcL (4.3-11.1)
[2020-06-02 01:38] LABS: BUN/Creatinine Ratio 28 (6-26); Blood Urea Nitrogen 36 mg/dL (8-23); Calcium 9.1 mg/dL (8.6-10.3); Carbon Dioxide 24 mEq/L (23-29); Chloride 97 mEq/L (98-107); Glucose 183 mg/dL (70-105); Osmolality,Calculated 281 (280-300); Potassium 4.3 mEq/L (3.5-5.1); Sodium 129 mEq/L (136-145); eGFR For African Americans > 60 (> 60); eGFR For Non-African Americans 57 (> 60)
[2020-06-02] MEDS: *HR* Heparin 5,000 UNIT/ML VIAL SQ SCH (05:40)
[2020-06-02] MEDS: *HR* OxyCODONE Immed Rel 5 MG TABLET PO PRN (06:05)
[2020-06-02 07:07] VITALS: BP 118/75
[2020-06-02] MEDS: Furosemide 40 MG TABLET PO SCH (07:51)
[2020-06-02] MEDS: Cholecalciferol (D-3) 1,000 UNIT (25MCG) TABLET PO SCH (07:51)
[2020-06-02] MEDS: amLODIPine 5 MG TABLET PO SCH (07:52)
[2020-06-02] MEDS: metroNIDAZOLE 500 MG TABLET PO SCH (07:52)
== END 2020-06-02 10:29 | DRG 853 ==
LOC: EMEROOARM 16:45 → 3ANU 16:45 → SUATTDRO 05-22 13:25 → 3NENU 05-23 16:01 → 2NNU 05-25 14:26 → 2ANU 05-31 13:39
PROVIDERS: ADMIT Student in an Organized Health Care Education/Training Program; ATTEND Internal Medicine

== ENCOUNTER 2020-07-30 14:25 | Inpatient (IN) ==
[2020-07-30] MEDS ORDERED: Gadolinium Contrast Agent (WT Based) IV PRN (16:11)
[2020-07-30 16:32] LABS: Basophils # 0.1 K/mcL (0.0-0.2); Basophils % 0.9 %; Eosinophils # 0.3 K/mcL (0.0-0.6); Eosinophils % 3.9 %; Hematocrit 30.5 % (37.5-50.1); Hemoglobin 9.1 g/dL (12.9-16.9); Lymphocytes # 2.3 K/mcL (0.6-4.6); Lymphocytes % 33.5 %; Mean Corpuscular HGB Conc 29.8 g/dL (31.6-35.5); Mean Corpuscular Hemoglobin 25.4 pg (28.0-33.3); Mean Corpuscular Volume 85.2 fL (83.0-100.0); Mean Platelet Volume 9.9 fL (9.4-12.4); Monocytes # 0.5 K/mcL (0.0-1.3); Monocytes % 6.9 %; Neutrophils # 3.7 K/mcL (1.6-8.9); Platelet Count 382 K/mcL (140-400); Red Blood Count 3.58 M/mcL (4.19-5.50); Red Cell Distribution Width 15.3 % (11.5-14.5); Segmented Neutrophils % 53.8 %; White Blood Count 6.9 K/mcL (4.3-11.1)
[2020-07-30] MEDS: DAPTOmycin 750 MG in 0.9 % Sodium Chloride 100 ML IVPB SCH (16:51)
[2020-07-30 17:04] LABS: Albumin/Globulin Ratio 1.1 (1.1-2.2); Bilirubin,Total 0.2 mg/dL (0.3-1.0); Calcium 10.2 mg/dL (8.6-10.3); Globulin 3.6 g/dL (2.4-3.5); Potassium 3.8 mEq/L (3.5-5.1); Total Protein 7.6 g/dL (6.4-8.9)
[2020-07-30] MEDS ORDERED: Acetaminophen 325 MG TABLET PO PRN (19:22)
[2020-07-30] MEDS ORDERED: Naloxone 0.4 MG/ML INJ IVP PRN (19:22)
[2020-07-30] MEDS ORDERED: Ondansetron 4 MG/2 ML VIAL IVP PRN (19:22)
[2020-07-30] MEDS: 0.9 % Sodium Chloride 1,000 ML IVC SCH (23:13)
[2020-07-31 00:54] LABS: Bilirubin,Urine Negative (Negative); Blood,Urine Negative (Negative); Clarity,Urine Clear (Clear); Color,Urine Colorless (Yellow); Glucose,Urine (UA) Normal (Normal); Ketones,Urine Negative (Negative); Leukocyte Esterase,Urine Negative (Negative); Nitrite,Urine Negative (Negative); Protein,Urine Negative (Neg-Trace); Specific Gravity,Urine 1.011 (1.010-1.025); Urobilinogen,Urine Normal (Normal)
[2020-07-31 01:51] LABS: Adenovirus Not Detected (Not Detect); Bordetella Pertussis Not Detected (Not Detect); Coronavirus 229E Not Detected (Not Detect); Coronavirus HKU1 Not Detected (Not Detect); Coronavirus NL63 Not Detected (Not Detect); Coronavirus OC43 Not Detected (Not Detect); Human Metapneumovirus Not Detected (Not Detect); Human Rhinovirus/Enterovirus Not Detected (Not Detect); Influenza A Subtype 2009 H1 Not Detected (Not Detect); Influenza B Not Detected (Not Detect); Parainfluenza Virus 1 Not Detected (Not Detect); Parainfluenza Virus 2 Not Detected (Not Detect); Parainfluenza Virus 3 Not Detected (Not Detect); Parainfluenza Virus 4 Not Detected (Not Detect); Respiratory Syncytial Virus Not Detected (Not Detect); SARS-CoV-2 Not Detected (Not Detect)
[2020-07-31 01:52] LABS: Chlamydophila pneumoniae Not Detected (Not Detect); Mycoplasma pneumoniae Not Detected (Not Detect)
[2020-07-31 02:05] LABS: Basophils # 0.1 K/mcL (0.0-0.2); Eosinophils # 0.3 K/mcL (0.0-0.6); Eosinophils % 4.6 %; Hematocrit 31.6 % (37.5-50.1); Hemoglobin 9.7 g/dL (12.9-16.9); Immature Granulocytes % 1.1 % (0-4); Lymphocytes # 3.1 K/mcL (0.6-4.6); Lymphocytes % 41.9 %; Mean Corpuscular HGB Conc 30.7 g/dL (31.6-35.5); Mean Corpuscular Hemoglobin 26.1 pg (28.0-33.3); Mean Corpuscular Volume 85.2 fL (83.0-100.0); Monocytes # 0.6 K/mcL (0.0-1.3); Monocytes % 8.7 %; Neutrophils # 3.1 K/mcL (1.6-8.9); Platelet Count 396 K/mcL (140-400); Red Blood Count 3.71 M/mcL (4.19-5.50); Red Cell Distribution Width 15.4 % (11.5-14.5); Segmented Neutrophils % 42.7 %; White Blood Count 7.3 K/mcL (4.3-11.1)
[2020-07-31 02:22] LABS: BUN/Creatinine Ratio 17 (6-26); Blood Urea Nitrogen 23 mg/dL (8-23); C-Reactive Protein 9 mg/L (Less than 10); Calcium 9.7 mg/dL (8.6-10.3); Carbon Dioxide 25 mEq/L (23-29); Chloride 102 mEq/L (98-107); Glucose 94 mg/dL (70-105); Magnesium 2.3 mg/dL (1.6-2.6); Osmolality,Calculated 283 (280-300); Potassium 3.9 mEq/L (3.5-5.1); Sodium 135 mEq/L (136-145); eGFR For African Americans > 60 (> 60); eGFR For Non-African Americans 55 (> 60)
[2020-07-31 06:40] LABS: INR 1.1; Prothrombin Time 13.2 Seconds (9.4-12.1)
[2020-07-31] MEDS: 0.9 % Sodium Chloride 1,000 ML IVC SCH (07:22)
[2020-07-31] MEDS: DAPTOmycin 750 MG in 0.9 % Sodium Chloride 100 ML IVPB SCH (16:33)
[2020-07-31] MEDS: amLODIPine 5 MG TABLET PO SCH (17:10)
[2020-07-31] MEDS: tiZANidine 4 MG TABLET PO PRN (22:29)
[2020-07-31] MEDS: *HR* Heparin 5,000 UNIT/ML VIAL SQ SCH (22:29)
[2020-07-31] MEDS: clonazePAM 0.5 MG TABLET PO SCH (22:29)
[2020-08-01] MEDS: *HR* Heparin 5,000 UNIT/ML VIAL SQ SCH ×3 (05:38→22:17)
[2020-08-01] MEDS: allopurinoL 100 MG TABLET PO SCH (08:13)
[2020-08-01] MEDS: lisinopriL 5 MG TABLET PO SCH (08:13)
[2020-08-01] MEDS: Furosemide 40 MG TABLET PO SCH (08:13)
[2020-08-01] MEDS: Cholecalciferol (D-3) 1,000 UNIT (25MCG) TABLET PO SCH (08:13)
[2020-08-01] MEDS: amLODIPine 5 MG TABLET PO SCH (08:14)
[2020-08-01 08:35] LABS: Basophils # 0.1 K/mcL (0.0-0.2); Basophils % 0.9 %; Eosinophils # 0.2 K/mcL (0.0-0.6); Eosinophils % 3.4 %; Hematocrit 33.3 % (37.5-50.1); Hemoglobin 10.2 g/dL (12.9-16.9); Immature Granulocytes % 1.5 % (0-4); Lymphocytes # 2.7 K/mcL (0.6-4.6); Lymphocytes % 40.1 %; Mean Corpuscular HGB Conc 30.6 g/dL (31.6-35.5); Mean Corpuscular Volume 84.7 fL (83.0-100.0); Mean Platelet Volume 9.5 fL (9.4-12.4); Monocytes # 0.5 K/mcL (0.0-1.3); Monocytes % 6.8 %; Neutrophils # 3.2 K/mcL (1.6-8.9); Platelet Count 435 K/mcL (140-400); Red Blood Count 3.93 M/mcL (4.19-5.50); Red Cell Distribution Width 15.2 % (11.5-14.5); Segmented Neutrophils % 47.3 %; White Blood Count 6.8 K/mcL (4.3-11.1)
[2020-08-01 09:43] LABS: Reactive Lymphocytes Present (Not Present)
[2020-08-01 11:13] LABS: BUN/Creatinine Ratio 13 (6-26); Blood Urea Nitrogen 16 mg/dL (8-23); Calcium 10.4 mg/dL (8.6-10.3); Carbon Dioxide 26 mEq/L (23-29); Chloride 104 mEq/L (98-107); Glucose 105 mg/dL (70-105); Osmolality,Calculated 284 (280-300); Potassium 4.3 mEq/L (3.5-5.1); Sodium 136 mEq/L (136-145); eGFR For African Americans > 60 (> 60); eGFR For Non-African Americans 59 (> 60)
[2020-08-01] MEDS: DAPTOmycin 750 MG in 0.9 % Sodium Chloride 100 ML IVPB SCH (17:00)
[2020-08-01] MEDS: clonazePAM 0.5 MG TABLET PO SCH (22:17)
[2020-08-01] MEDS: tiZANidine 4 MG TABLET PO PRN (22:17)
[2020-08-02] MEDS: *HR* Heparin 5,000 UNIT/ML VIAL SQ SCH ×3 (06:19→22:23)
[2020-08-02] MEDS: allopurinoL 100 MG TABLET PO SCH (09:11)
[2020-08-02] MEDS: amLODIPine 5 MG TABLET PO SCH (09:11)
[2020-08-02] MEDS: Furosemide 40 MG TABLET PO SCH (09:11)
[2020-08-02] MEDS: Cholecalciferol (D-3) 1,000 UNIT (25MCG) TABLET PO SCH (09:11)
[2020-08-02] MEDS: lisinopriL 5 MG TABLET PO SCH (09:22)
[2020-08-02 09:35] LABS: Calcium 10.9 mg/dL (8.6-10.3)
[2020-08-02 09:41] LABS: White Blood Count 9.9 K/mcL (4.3-11.1)
[2020-08-02 09:42] LABS: Basophils # 0.1 K/mcL (0.0-0.2); Eosinophils # 0.1 K/mcL (0.0-0.6); Eosinophils % 1.4 %; Hematocrit 35.8 % (37.5-50.1); Hemoglobin 11.1 g/dL (12.9-16.9); Immature Granulocytes % 1.1 % (0-4); Lymphocytes # 3.4 K/mcL (0.6-4.6); Mean Corpuscular Hemoglobin 26.1 pg (28.0-33.3); Mean Platelet Volume 9.5 fL (9.4-12.4); Monocytes # 0.5 K/mcL (0.0-1.3); Monocytes % 5.2 %; Neutrophils # 5.7 K/mcL (1.6-8.9); Platelet Count 598 K/mcL (140-400); Red Blood Count 4.26 M/mcL (4.19-5.50); Red Cell Distribution Width 15.5 % (11.5-14.5); Segmented Neutrophils % 57.3 %
[2020-08-02] MEDS: Ceftaroline Fosamil Acetate 600 MG in 0.9 % Sodium Chloride 50 ML IVPB SCH ×2 (12:54→22:30)
[2020-08-02] MEDS ORDERED: 0.9 % Sodium Chloride 1,000 ML IVC SCH (13:15)
[2020-08-02] MEDS: DAPTOmycin 750 MG in 0.9 % Sodium Chloride 100 ML IVPB SCH (16:22)
[2020-08-02] MEDS: clonazePAM 0.5 MG TABLET PO SCH (22:23)
[2020-08-03 02:05] LABS: Hematocrit 29.9 % (37.5-50.1); Hemoglobin 9.3 g/dL (12.9-16.9); Mean Corpuscular HGB Conc 31.1 g/dL (31.6-35.5); Mean Corpuscular Hemoglobin 26.2 pg (28.0-33.3); Mean Corpuscular Volume 84.2 fL (83.0-100.0); Mean Platelet Volume 9.4 fL (9.4-12.4); Platelet Count 412 K/mcL (140-400); Red Blood Count 3.55 M/mcL (4.19-5.50); Red Cell Distribution Width 15.6 % (11.5-14.5); White Blood Count 8.7 K/mcL (4.3-11.1)
[2020-08-03 02:23] LABS: Potassium 3.6 mEq/L (3.5-5.1)
[2020-08-03] MEDS: *HR* Heparin 5,000 UNIT/ML VIAL SQ SCH ×3 (05:51→21:46)
[2020-08-03] MEDS ORDERED: Gadolinium Contrast Agent (WT Based) IV PRN (06:12)
[2020-08-03] MEDS ORDERED: Ketorolac 15 MG/ML VIAL IVP ONE (06:31)
[2020-08-03] MEDS: amLODIPine 5 MG TABLET PO SCH (08:38)
[2020-08-03] MEDS: Furosemide 40 MG TABLET PO SCH (08:38)
[2020-08-03] MEDS: Cholecalciferol (D-3) 1,000 UNIT (25MCG) TABLET PO SCH (08:38)
[2020-08-03] MEDS: allopurinoL 100 MG TABLET PO SCH (08:39)
[2020-08-03] MEDS: *HR* HYDROcodone/Acet 5/325 mg TABLET PO PRN ×2 (11:32→17:42)
[2020-08-03] MEDS: Ceftaroline Fosamil Acetate 600 MG in 0.9 % Sodium Chloride 50 ML IVPB SCH (11:33)
[2020-08-03] MEDS: DAPTOmycin 750 MG in 0.9 % Sodium Chloride 100 ML IVPB SCH (16:26)
[2020-08-03] MEDS: clonazePAM 0.5 MG TABLET PO SCH (21:46)
[2020-08-03] MEDS: tiZANidine 4 MG TABLET PO PRN (21:46)
[2020-08-04] MEDS: Ceftaroline Fosamil Acetate 600 MG in 0.9 % Sodium Chloride 50 ML IVPB SCH ×2 (00:13→12:23)
[2020-08-04] MEDS: *HR* HYDROcodone/Acet 5/325 mg TABLET PO PRN ×3 (00:14→15:57)
[2020-08-04] MEDS: *HR* Heparin 5,000 UNIT/ML VIAL SQ SCH ×2 (06:09→12:23)
[2020-08-04 06:31] VITALS: BP 103/66
[2020-08-04] MEDS: allopurinoL 100 MG TABLET PO SCH (09:24)
[2020-08-04] MEDS: Cholecalciferol (D-3) 1,000 UNIT (25MCG) TABLET PO SCH (09:24)
[2020-08-04] MEDS: amLODIPine 5 MG TABLET PO SCH (09:24)
[2020-08-04] MEDS: Furosemide 40 MG TABLET PO SCH (09:24)
[2020-08-04] MEDS: DAPTOmycin 750 MG in 0.9 % Sodium Chloride 100 ML IVPB SCH (15:57)
== END 2020-08-04 18:19 | disposition short-term general hospital (02) | DRG 638 ==
LOC: 3NENU 14:25 → EMEROOARM 14:25 → SUATTDRO 18:32 → 3NENU 20:26 → SUATTDRO 07-31 18:16
PROVIDERS: ADMIT General Practice; ATTEND Internal Medicine

== ENCOUNTER 2020-08-17 14:16 | Observation (INO) ==
[2020-08-17 15:07] LABS: Basophils # 0.1 K/mcL (0.0-0.2); Basophils % 0.7 %; Eosinophils # 0.2 K/mcL (0.0-0.6); Eosinophils % 1.5 %; Hemoglobin 9.3 g/dL (12.9-16.9); Immature Granulocytes % 0.3 % (0-4); Lymphocytes # 2.9 K/mcL (0.6-4.6); Lymphocytes % 27.4 %; Mean Corpuscular Hemoglobin 26.1 pg (28.0-33.3); Mean Corpuscular Volume 84.3 fL (83.0-100.0); Mean Platelet Volume 10.1 fL (9.4-12.4); Monocytes # 0.9 K/mcL (0.0-1.3); Monocytes % 8.7 %; Neutrophils # 6.6 K/mcL (1.6-8.9); Platelet Count 327 K/mcL (140-400); Red Blood Count 3.56 M/mcL (4.19-5.50); Red Cell Distribution Width 16.6 % (11.5-14.5); Segmented Neutrophils % 61.4 %; White Blood Count 10.7 K/mcL (4.3-11.1)
[2020-08-17 15:22] LABS: BUN/Creatinine Ratio 15 (6-26); Blood Urea Nitrogen 21 mg/dL (8-23); Calcium 10.3 mg/dL (8.6-10.3); Carbon Dioxide 28 mEq/L (23-29); Chloride 103 mEq/L (98-107); Glucose 108 mg/dL (70-105); Osmolality,Calculated 292 (280-300); Potassium 3.8 mEq/L (3.5-5.1); Sodium 139 mEq/L (136-145); eGFR For African Americans > 60 (> 60); eGFR For Non-African Americans 50 (> 60)
[2020-08-17 15:42] LABS: Amphetamine Screen,Urine Positive ng/mL (Cutoff=1000); Barbiturate Screen,Urine Negative ng/mL (Cutoff=200); Benzodiazepines Screen,Urine Negative ng/mL (Cutoff=200); Cannabinoid Screen,Urine Positive ng/mL (Cutoff = 50); Cocaine Screen,Urine Positive ng/mL (Cutoff= 300); Opiate Screen,Urine Negative ng/mL (Cutoff=300); Phencyclidine Screen,Urine Negative ng/mL (Cutoff=25)
[2020-08-17] MEDS ORDERED: Vancomycin 1,250 MG/262.5 ML IV.SOLN IVPB ONE (16:00)
[2020-08-17] MEDS ORDERED: Naloxone 0.4 MG/ML INJ IVP PRN (16:32)
[2020-08-17] MEDS: clonazePAM 0.5 MG TABLET PO SCH (20:00)
[2020-08-17] MEDS: *HR* OxyCODONE Immed Rel 5 MG TABLET PO PRN (20:00)
[2020-08-18 01:56] LABS: Basophils # 0.1 K/mcL (0.0-0.2); Basophils % 0.9 %; Eosinophils # 0.3 K/mcL (0.0-0.6); Eosinophils % 4.1 %; Hematocrit 31.1 % (37.5-50.1); Hemoglobin 9.6 g/dL (12.9-16.9); Immature Granulocytes % 0.4 % (0-4); Lymphocytes # 2.3 K/mcL (0.6-4.6); Mean Corpuscular HGB Conc 30.9 g/dL (31.6-35.5); Mean Corpuscular Hemoglobin 26.2 pg (28.0-33.3); Mean Platelet Volume 10.4 fL (9.4-12.4); Monocytes # 0.8 K/mcL (0.0-1.3); Monocytes % 11.7 %; Neutrophils # 3.4 K/mcL (1.6-8.9); Platelet Count 312 K/mcL (140-400); Red Blood Count 3.66 M/mcL (4.19-5.50); Red Cell Distribution Width 16.7 % (11.5-14.5); Segmented Neutrophils % 49.9 %; White Blood Count 6.9 K/mcL (4.3-11.1)
[2020-08-18 02:13] LABS: BUN/Creatinine Ratio 13 (6-26); Blood Urea Nitrogen 19 mg/dL (8-23); Calcium 9.7 mg/dL (8.6-10.3); Carbon Dioxide 27 mEq/L (23-29); Chloride 102 mEq/L (98-107); Glucose 106 mg/dL (70-105); Osmolality,Calculated 285 (280-300); Potassium 3.4 mEq/L (3.5-5.1); Sodium 136 mEq/L (136-145); eGFR For African Americans > 60 (> 60); eGFR For Non-African Americans 51 (> 60)
[2020-08-18] MEDS: Cholecalciferol (D-3) 1,000 UNIT (25MCG) TABLET PO SCH (08:55)
[2020-08-18] MEDS: Furosemide 40 MG TABLET PO SCH (08:55)
[2020-08-18] MEDS: amLODIPine 5 MG TABLET PO SCH (08:56)
[2020-08-18] MEDS: allopurinoL 100 MG TABLET PO SCH (08:56)
[2020-08-18] MEDS: DAPTOmycin 600 MG in 0.9 % Sodium Chloride 100 ML IVPB SCH (08:57)
[2020-08-18] MEDS ORDERED: lisinopriL 10 MG TABLET PO SCH (09:00)
[2020-08-18] MEDS: *HR* OxyCODONE Immed Rel 5 MG TABLET PO PRN ×2 (09:04→21:19)
[2020-08-18] MEDS: *HR* HYDROcodone/Acet 5/325 mg TABLET PO PRN (17:39)
[2020-08-18] MEDS: clonazePAM 0.5 MG TABLET PO SCH (21:19)
[2020-08-19 01:04] LABS: Basophils # 0.1 K/mcL (0.0-0.2); Basophils % 0.7 %; Eosinophils % 2.3 %; Hematocrit 31.2 % (37.5-50.1); Hemoglobin 9.6 g/dL (12.9-16.9); Immature Granulocytes % 0.4 % (0-4); Lymphocytes # 2.7 K/mcL (0.6-4.6); Lymphocytes % 25.1 %; Mean Corpuscular HGB Conc 30.8 g/dL (31.6-35.5); Mean Corpuscular Hemoglobin 26.4 pg (28.0-33.3); Mean Corpuscular Volume 85.7 fL (83.0-100.0); Mean Platelet Volume 9.8 fL (9.4-12.4); Monocytes % 9.6 %; Neutrophils # 6.6 K/mcL (1.6-8.9); Platelet Count 344 K/mcL (140-400); Red Blood Count 3.64 M/mcL (4.19-5.50); Red Cell Distribution Width 16.6 % (11.5-14.5); Segmented Neutrophils % 61.9 %
[2020-08-19 01:05] LABS: Eosinophils # 0.3 K/mcL (0.0-0.6); White Blood Count 10.7 K/mcL (4.3-11.1)
[2020-08-19 01:23] LABS: Calcium 9.7 mg/dL (8.6-10.3); Potassium 3.9 mEq/L (3.5-5.1)
[2020-08-19] MEDS ORDERED: 0.9 % Sodium Chloride 1,000 ML IVC SCH (07:30)
[2020-08-19] MEDS: Cholecalciferol (D-3) 1,000 UNIT (25MCG) TABLET PO SCH (09:05)
[2020-08-19] MEDS: allopurinoL 100 MG TABLET PO SCH (09:05)
[2020-08-19] MEDS: *HR* OxyCODONE Immed Rel 5 MG TABLET PO PRN ×2 (09:05→20:53)
[2020-08-19] MEDS: amLODIPine 5 MG TABLET PO SCH (09:05)
[2020-08-19] MEDS: DAPTOmycin 600 MG in 0.9 % Sodium Chloride 100 ML IVPB SCH (11:28)
[2020-08-19] MEDS: *HR* HYDROcodone/Acet 5/325 mg TABLET PO PRN (12:45)
[2020-08-19] MEDS: clonazePAM 0.5 MG TABLET PO SCH (20:53)
[2020-08-20 06:35] LABS: Basophils # 0.1 K/mcL (0.0-0.2); Basophils % 1.4 %; Eosinophils # 0.3 K/mcL (0.0-0.6); Eosinophils % 4.5 %; Hematocrit 35.1 % (37.5-50.1); Hemoglobin 10.6 g/dL (12.9-16.9); Immature Granulocytes % 0.9 % (0-4); Lymphocytes # 2.2 K/mcL (0.6-4.6); Lymphocytes % 39.1 %; Mean Corpuscular HGB Conc 30.2 g/dL (31.6-35.5); Mean Corpuscular Hemoglobin 25.2 pg (28.0-33.3); Mean Corpuscular Volume 83.6 fL (83.0-100.0); Mean Platelet Volume 9.8 fL (9.4-12.4); Monocytes # 0.6 K/mcL (0.0-1.3); Monocytes % 9.9 %; Neutrophils # 2.5 K/mcL (1.6-8.9); Platelet Count 312 K/mcL (140-400); Red Cell Distribution Width 16.3 % (11.5-14.5); Segmented Neutrophils % 44.2 %; White Blood Count 5.7 K/mcL (4.3-11.1)
[2020-08-20 07:03] LABS: BUN/Creatinine Ratio 11 (6-26); Blood Urea Nitrogen 14 mg/dL (8-23); Carbon Dioxide 22 mEq/L (23-29); Chloride 107 mEq/L (98-107); Glucose 93 mg/dL (70-105); Osmolality,Calculated 282 (280-300); Potassium 4.1 mEq/L (3.5-5.1); Sodium 136 mEq/L (136-145); eGFR For African Americans > 60 (> 60); eGFR For Non-African Americans 59 (> 60)
[2020-08-20] MEDS: DAPTOmycin 600 MG in 0.9 % Sodium Chloride 100 ML IVPB SCH (08:53)
[2020-08-20] MEDS: Cholecalciferol (D-3) 1,000 UNIT (25MCG) TABLET PO SCH (08:53)
[2020-08-20] MEDS: amLODIPine 5 MG TABLET PO SCH (08:53)
[2020-08-20] MEDS: allopurinoL 100 MG TABLET PO SCH (08:53)
[2020-08-20] MEDS: *HR* OxyCODONE Immed Rel 5 MG TABLET PO PRN ×2 (09:00→15:26)
[2020-08-20] MEDS: clonazePAM 0.5 MG TABLET PO SCH (20:32)
[2020-08-21] MEDS: *HR* OxyCODONE Immed Rel 5 MG TABLET PO PRN ×4 (00:09→20:58)
[2020-08-21 01:30] LABS: Basophils % 0.6 %; Eosinophils # 0.2 K/mcL (0.0-0.6); Eosinophils % 2.7 %; Hematocrit 38.6 % (37.5-50.1); Immature Granulocytes % 0.6 % (0-4); Lymphocytes # 2.2 K/mcL (0.6-4.6); Lymphocytes % 31.6 %; Mean Corpuscular HGB Conc 31.1 g/dL (31.6-35.5); Mean Corpuscular Volume 83.7 fL (83.0-100.0); Mean Platelet Volume 9.6 fL (9.4-12.4); Monocytes # 0.6 K/mcL (0.0-1.3); Monocytes % 8.5 %; Platelet Count 322 K/mcL (140-400); Red Blood Count 4.61 M/mcL (4.19-5.50); Red Cell Distribution Width 16.3 % (11.5-14.5); White Blood Count 7.1 K/mcL (4.3-11.1)
[2020-08-21 01:47] LABS: BUN/Creatinine Ratio 12 (6-26); Blood Urea Nitrogen 13 mg/dL (8-23); Carbon Dioxide 22 mEq/L (23-29); Chloride 107 mEq/L (98-107); Glucose 91 mg/dL (70-105); Osmolality,Calculated 282 (280-300); Sodium 136 mEq/L (136-145); eGFR For African Americans > 60 (> 60); eGFR For Non-African Americans > 60 (> 60)
[2020-08-21] MEDS: Cholecalciferol (D-3) 1,000 UNIT (25MCG) TABLET PO SCH (08:17)
[2020-08-21] MEDS: DAPTOmycin 600 MG in 0.9 % Sodium Chloride 100 ML IVPB SCH (08:17)
[2020-08-21] MEDS: amLODIPine 5 MG TABLET PO SCH (08:18)
[2020-08-21] MEDS: allopurinoL 100 MG TABLET PO SCH (08:18)
[2020-08-21] MEDS ORDERED: Lidocaine -MPF 1% 5 ML AMPUL INFILT ONE (09:42)
[2020-08-21] MEDS: Furosemide 40 MG TABLET PO SCH (12:42)
[2020-08-21] MEDS: Gabapentin 100 MG CAPSULE PO SCH ×2 (14:34→20:53)
[2020-08-21] MEDS: carvediloL 6.25 MG TABLET PO SCH ×2 (14:34→19:45)
[2020-08-21] MEDS: clonazePAM 0.5 MG TABLET PO SCH (20:53)
[2020-08-21] MEDS: *HR* Heparin 5,000 UNIT/ML VIAL SQ SCH (21:32)
[2020-08-22 01:21] LABS: Basophils # 0.1 K/mcL (0.0-0.2); Basophils % 1.3 %; Eosinophils # 0.2 K/mcL (0.0-0.6); Eosinophils % 2.5 %; Hematocrit 37.7 % (37.5-50.1); Hemoglobin 11.7 g/dL (12.9-16.9); Immature Granulocytes % 0.7 % (0-4); Lymphocytes # 3.3 K/mcL (0.6-4.6); Lymphocytes % 37.3 %; Mean Corpuscular Hemoglobin 25.5 pg (28.0-33.3); Mean Corpuscular Volume 82.1 fL (83.0-100.0); Mean Platelet Volume 9.5 fL (9.4-12.4); Monocytes # 0.7 K/mcL (0.0-1.3); Monocytes % 7.5 %; Neutrophils # 4.5 K/mcL (1.6-8.9); Platelet Count 398 K/mcL (140-400); Red Blood Count 4.59 M/mcL (4.19-5.50); Red Cell Distribution Width 16.3 % (11.5-14.5); Segmented Neutrophils % 50.7 %; White Blood Count 8.8 K/mcL (4.3-11.1)
[2020-08-22 01:33] LABS: BUN/Creatinine Ratio 13 (6-26); Blood Urea Nitrogen 16 mg/dL (8-23); Calcium 10.2 mg/dL (8.6-10.3); Carbon Dioxide 20 mEq/L (23-29); Chloride 105 mEq/L (98-107); Glucose 105 mg/dL (70-105); Osmolality,Calculated 282 (280-300); Potassium 3.9 mEq/L (3.5-5.1); Sodium 135 mEq/L (136-145); eGFR For African Americans > 60 (> 60); eGFR For Non-African Americans > 60 (> 60)
[2020-08-22] MEDS: *HR* Heparin 5,000 UNIT/ML VIAL SQ SCH (05:43)
[2020-08-22] MEDS: *HR* OxyCODONE Immed Rel 5 MG TABLET PO PRN ×2 (05:46→13:09)
[2020-08-22] MEDS: Furosemide 40 MG TABLET PO SCH (07:55)
[2020-08-22] MEDS: Gabapentin 100 MG CAPSULE PO SCH (07:55)
[2020-08-22] MEDS: allopurinoL 100 MG TABLET PO SCH (07:55)
[2020-08-22] MEDS: Cholecalciferol (D-3) 1,000 UNIT (25MCG) TABLET PO SCH (07:55)
[2020-08-22] MEDS: carvediloL 6.25 MG TABLET PO SCH (07:55)
[2020-08-22] MEDS: amLODIPine 5 MG TABLET PO SCH (07:55)
[2020-08-22] MEDS: DAPTOmycin 600 MG in 0.9 % Sodium Chloride 100 ML IVPB SCH (07:56)
[2020-08-22 10:24] VITALS: BP 114/16
[2020-08-22 12:17] LABS: Adenovirus Not Detected (Not Detect); Bordetella Pertussis Not Detected (Not Detect); Chlamydophila pneumoniae Not Detected (Not Detect); Coronavirus 229E Not Detected (Not Detect); Coronavirus HKU1 Not Detected (Not Detect); Coronavirus NL63 Not Detected (Not Detect); Coronavirus OC43 Not Detected (Not Detect); Human Metapneumovirus Not Detected (Not Detect); Human Rhinovirus/Enterovirus Not Detected (Not Detect); Influenza A Subtype 2009 H1 Not Detected (Not Detect); Influenza B Not Detected (Not Detect); Mycoplasma pneumoniae Not Detected (Not Detect); Parainfluenza Virus 1 Not Detected (Not Detect); Parainfluenza Virus 2 Not Detected (Not Detect); Parainfluenza Virus 3 Not Detected (Not Detect); Parainfluenza Virus 4 Not Detected (Not Detect); Respiratory Syncytial Virus Not Detected (Not Detect); SARS-CoV-2 Not Detected (Not Detect)
== END 2020-08-22 13:11 ==
LOC: EMEROOARM 14:16 → 3NENU 14:16 → SUATTDRO 16:33 → 3NENU 17:57
PROVIDERS: ADMIT Internal Medicine; ATTEND General Practice

== ENCOUNTER 2020-09-01 10:00 | Observation (INO) ==
[2020-09-01 10:26] LABS: Basophils # 0.1 K/mcL (0.0-0.2); Basophils % 0.5 %; Eosinophils # 0.3 K/mcL (0.0-0.6); Eosinophils % 1.9 %; Hematocrit 32.3 % (37.5-50.1); Hemoglobin 9.8 g/dL (12.9-16.9); Immature Granulocytes % 0.7 % (0-4); Lymphocytes # 2.3 K/mcL (0.6-4.6); Lymphocytes % 14.8 %; Mean Corpuscular HGB Conc 30.3 g/dL (31.6-35.5); Mean Corpuscular Hemoglobin 25.5 pg (28.0-33.3); Mean Corpuscular Volume 83.9 fL (83.0-100.0); Monocytes % 6.7 %; Neutrophils # 11.5 K/mcL (1.6-8.9); Platelet Count 295 K/mcL (140-400); Red Blood Count 3.85 M/mcL (4.19-5.50); Red Cell Distribution Width 15.9 % (11.5-14.5); Segmented Neutrophils % 75.4 %; White Blood Count 15.3 K/mcL (4.3-11.1)
[2020-09-01 10:46] LABS: Albumin/Globulin Ratio 1.1 (1.1-2.2); Bilirubin,Total 0.6 mg/dL (0.3-1.0); Calcium 9.9 mg/dL (8.6-10.3); Globulin 3.5 g/dL (2.4-3.5); Potassium 3.9 mEq/L (3.5-5.1); Total Protein 7.5 g/dL (6.4-8.9)
[2020-09-01] MEDS: 0.9 % Sodium Chloride 1,000 ML IVC SCH ×2 (11:13→13:38)
[2020-09-01 11:20] LABS: Bilirubin,Urine Negative (Negative); Blood,Urine Negative (Negative); Clarity,Urine Clear (Clear); Color,Urine Colorless (Yellow); Glucose,Urine (UA) Normal (Normal); Ketones,Urine Negative (Negative); Leukocyte Esterase,Urine Negative (Negative); Nitrite,Urine Negative (Negative); Protein,Urine Negative (Neg-Trace); Specific Gravity,Urine 1.009 (1.010-1.025); Urobilinogen,Urine Normal (Normal)
[2020-09-01 11:44] LABS: Amphetamine Screen,Urine Negative ng/mL (Cutoff=1000); Barbiturate Screen,Urine Negative ng/mL (Cutoff=200); Benzodiazepines Screen,Urine Negative ng/mL (Cutoff=200); Cannabinoid Screen,Urine Positive ng/mL (Cutoff = 50); Cocaine Screen,Urine Negative ng/mL (Cutoff= 300); Opiate Screen,Urine Negative ng/mL (Cutoff=300); Phencyclidine Screen,Urine Negative ng/mL (Cutoff=25)
[2020-09-01] MEDS ORDERED: Naloxone 0.4 MG/ML INJ IVP PRN (12:19)
[2020-09-01] MEDS ORDERED: Ondansetron 4 MG/2 ML VIAL IVP PRN (12:19)
[2020-09-01] MEDS ORDERED: Ringers Solution, Lactated 1,000 ML IVC SCH (12:30)
[2020-09-01] MEDS ORDERED: *HR* OxyCODONE/APAP 5/325 TABLET PO PRN (12:55)
[2020-09-01] MEDS ORDERED: *HR* OxyCODONE/APAP 10/325 TABLET PO PRN (12:55)
[2020-09-01] MEDS ORDERED: DAPTOmycin 500 MG in 0.9 % Sodium Chloride 100 ML IVPB SCH (13:00)
[2020-09-01] MEDS ORDERED: *HR* OxyCODONE Immed Rel 5 MG TABLET PO PRN (14:43)
[2020-09-01] MEDS: *HR* Heparin 5,000 UNIT/ML VIAL SQ SCH (16:05)
[2020-09-01] MEDS: carvediloL 6.25 MG TABLET PO SCH (16:05)
[2020-09-01] MEDS: Gabapentin 100 MG CAPSULE PO SCH ×2 (16:05→20:48)
[2020-09-01] MEDS ORDERED: clonazePAM 0.5 MG TABLET PO SCH (21:00)
[2020-09-02 05:17] LABS: Basophils % 0.5 %
[2020-09-02 05:19] LABS: Basophils # 0.1 K/mcL (0.0-0.2); Eosinophils # 0.2 K/mcL (0.0-0.6); Eosinophils % 1.7 %; Hemoglobin 9.8 g/dL (12.9-16.9); Immature Granulocytes % 0.7 % (0-4); Immature Platelets 5.3 % (1.1-6.1); Lymphocytes # 2.1 K/mcL (0.6-4.6); Lymphocytes % 20.5 %; Mean Corpuscular HGB Conc 31.6 g/dL (31.6-35.5); Mean Corpuscular Hemoglobin 26.1 pg (28.0-33.3); Mean Corpuscular Volume 82.7 fL (83.0-100.0); Mean Platelet Volume 10.7 fL (9.4-12.4); Monocytes # 0.8 K/mcL (0.0-1.3); Neutrophils # 7.1 K/mcL (1.6-8.9); Platelet Count 235 K/mcL (140-400); Red Blood Count 3.75 M/mcL (4.19-5.50); Red Cell Distribution Width 15.8 % (11.5-14.5); Segmented Neutrophils % 68.6 %; White Blood Count 10.3 K/mcL (4.3-11.1)
[2020-09-02] MEDS: *HR* Heparin 5,000 UNIT/ML VIAL SQ SCH (05:28)
[2020-09-02 05:37] LABS: BUN/Creatinine Ratio 13 (6-26); Blood Urea Nitrogen 16 mg/dL (8-23); C-Reactive Protein 72 mg/L (Less than 10); Calcium 9.4 mg/dL (8.6-10.3); Carbon Dioxide 22 mEq/L (23-29); Chloride 106 mEq/L (98-107); Creatine Kinase 95 Units/L (30-223); Glucose 93 mg/dL (70-105); Osmolality,Calculated 283 (280-300); Phosphorous 2.3 mg/dL (2.7-4.5); Potassium 4.1 mEq/L (3.5-5.1); Sodium 136 mEq/L (136-145); eGFR For African Americans > 60 (> 60); eGFR For Non-African Americans > 60 (> 60)
[2020-09-02 05:38] LABS: Albumin 3.5 g/dL (3.5-5.7); Albumin/Globulin Ratio 1.1 (1.1-2.2); Bilirubin,Direct 0.1 mg/dL (0.0-0.2); Bilirubin,Indirect 0.5 mg/dL (0.0-1.0); Bilirubin,Total 0.6 mg/dL (0.3-1.0); Globulin 3.2 g/dL (2.4-3.5); Total Protein 6.7 g/dL (6.4-8.9)
[2020-09-02] MEDS: Gabapentin 100 MG CAPSULE PO SCH (07:46)
[2020-09-02] MEDS: carvediloL 6.25 MG TABLET PO SCH (07:47)
[2020-09-02] MEDS ORDERED: amLODIPine 5 MG TABLET PO SCH (09:00)
[2020-09-02] MEDS ORDERED: allopurinoL 100 MG TABLET PO SCH (09:00)
[2020-09-02 10:44] VITALS: BP 106/67
[2020-09-02] MEDS ORDERED: Doxycycline 100 MG CAPSULE PO SCH (21:00)
== END 2020-09-02 11:40 | disposition home or self-care (01) ==
LOC: 2ANU 10:00 → EMEROOARM 10:00 → SUATTDRO 11:45 → 2ANU 12:21
PROVIDERS: ADMIT Internal Medicine; ATTEND Internal Medicine

== ENCOUNTER 2021-12-06 19:06 | Observation (INO) ==
[2021-12-06 22:15] LABS: VBG HCO3 26 mEq/L (21-27); VBG PCO2 50 mmHg (41-51); VBG PH 7.32 pH Units (7.32-7.42); VBG PO2 45 mmHg (25-50)
[2021-12-06 22:41] LABS: BUN/Creatinine Ratio 18 (6-26); Blood Urea Nitrogen 37 mg/dL (8-23); Calcium 9.5 mg/dL (8.6-10.3); Carbon Dioxide 25 mEq/L (23-29); Chloride 102 mEq/L (98-107); Glucose 111 mg/dL (70-105); Osmolality,Calculated 289 (280-300); Potassium 3.8 mEq/L (3.5-5.1); Sodium 135 mEq/L (136-145)
[2021-12-06 22:42] LABS: Troponin I < 0.03 ng/mL (< 0.04)
[2021-12-06 22:43] LABS: Basophils % 0.4 %; Eosinophils # 0.2 K/mcL (0.0-0.6); Eosinophils % 2.2 %; Hemoglobin 11.2 g/dL (12.9-16.9); Immature Granulocytes % 0.2 % (0-4); Lymphocytes % 21.8 %; Mean Corpuscular HGB Conc 32.9 g/dL (31.6-35.5); Mean Corpuscular Hemoglobin 29.6 pg (28.0-33.3); Mean Corpuscular Volume 89.9 fL (83.0-100.0); Mean Platelet Volume 10.9 fL (9.4-12.4); Monocytes # 0.7 K/mcL (0.0-1.3); Monocytes % 7.6 %; Neutrophils # 6.1 K/mcL (1.6-8.9); Platelet Count 183 K/mcL (140-400); Red Blood Count 3.78 M/mcL (4.19-5.50); Red Cell Distribution Width 13.2 % (11.5-14.5); Segmented Neutrophils % 67.8 %; White Blood Count 9.1 K/mcL (4.3-11.1)
[2021-12-07] MEDS ORDERED: Furosemide 40 MG/4 ML VIAL IVP ONE (01:05)
[2021-12-07] MEDS ORDERED: Ondansetron 4 MG/2 ML VIAL IVP PRN (02:47)
[2021-12-07] MEDS ORDERED: Acetaminophen 325 MG TABLET PO PRN (02:47)
[2021-12-07] MEDS ORDERED: Naloxone 0.4 MG/ML INJ IVP PRN (02:47)
[2021-12-07 03:54] LABS: Adenovirus Not Detected (Not Detect); Bordetella Pertussis Not Detected (Not Detect); Chlamydophila pneumoniae Not Detected (Not Detect); Coronavirus 229E Not Detected (Not Detect); Coronavirus HKU1 Not Detected (Not Detect); Coronavirus NL63 Not Detected (Not Detect); Coronavirus OC43 Not Detected (Not Detect); Human Metapneumovirus Not Detected (Not Detect); Human Rhinovirus/Enterovirus Not Detected (Not Detect); Influenza A Subtype 2009 H1 Not Detected (Not Detect); Influenza B Not Detected (Not Detect); Mycoplasma pneumoniae Not Detected (Not Detect); Parainfluenza Virus 1 Not Detected (Not Detect); Parainfluenza Virus 2 Not Detected (Not Detect); Parainfluenza Virus 3 Not Detected (Not Detect); Parainfluenza Virus 4 Not Detected (Not Detect); Respiratory Syncytial Virus Not Detected (Not Detect); SARS-CoV-2 Not Detected (Not Detect)
[2021-12-07] MEDS ORDERED: Saline Nasal Spray 44 ML BOTTLE NS PRN (06:55)
[2021-12-07] MEDS ORDERED: Saliva Stimulant 44.3ml BOTTLE PO PRN (06:55)
[2021-12-07 08:05] LABS: Basophils % 0.6 %; Eosinophils # 0.2 K/mcL (0.0-0.6); Eosinophils % 3.4 %; Hemoglobin 10.8 g/dL (12.9-16.9); Immature Granulocytes % 0.3 % (0-4); Lymphocytes # 1.8 K/mcL (0.6-4.6); Lymphocytes % 25.4 %; Mean Corpuscular HGB Conc 32.7 g/dL (31.6-35.5); Mean Corpuscular Volume 88.7 fL (83.0-100.0); Mean Platelet Volume 10.8 fL (9.4-12.4); Monocytes # 0.7 K/mcL (0.0-1.3); Monocytes % 9.6 %; Neutrophils # 4.2 K/mcL (1.6-8.9); Platelet Count 175 K/mcL (140-400); Red Blood Count 3.72 M/mcL (4.19-5.50); Red Cell Distribution Width 13.3 % (11.5-14.5); Segmented Neutrophils % 60.7 %
[2021-12-07 08:13] LABS: Albumin 3.9 g/dL (3.5-5.7); Albumin/Globulin Ratio 1.5 (1.1-2.2); Bilirubin,Total 0.6 mg/dL (0.3-1.0); Globulin 2.6 g/dL (2.4-3.5); Magnesium 2.2 mg/dL (1.6-2.6); Phosphorous 2.7 mg/dL (2.7-4.5); Potassium 3.4 mEq/L (3.5-5.1); Total Protein 6.5 g/dL (6.4-8.9)
[2021-12-07 08:28] LABS: INR 1.1; Prothrombin Time 12.1 Seconds (9.4-12.1)
[2021-12-07] MEDS ORDERED: levoFLOXacin 750 MG/150 ML 750 MG/150 ML BAG IVPB SCH (09:00)
[2021-12-07] MEDS ORDERED: Chlorhexidine Rinse 15 ML MOUTHWASH MM SCH (09:00)
[2021-12-07] MEDS: lisinopriL 10 MG TABLET PO SCH (09:23)
[2021-12-07] MEDS: Furosemide 20 MG/2 ML VIAL IVP SCH ×2 (09:24→17:27)
[2021-12-07] MEDS: carvediloL 6.25 MG TABLET PO SCH ×2 (09:24→17:26)
[2021-12-07] MEDS: Multivit/Ca/Min/Fe/FA 1 TAB TABLET PO SCH (09:24)
[2021-12-07] MEDS: Lactobacillus 1 EACH CAP.SPRINK PO SCH ×2 (09:24→21:57)
[2021-12-07] MEDS: Artificial Tears SOLN 15 ML BOTTLE BOTH EYES SCH ×2 (09:31→21:57)
[2021-12-07] MEDS: Ipratropium/Albuterol Neb 3 ML IH SCH ×3 (10:53→22:11)
[2021-12-07] MEDS ORDERED: Potassium Chloride Elixir 20 MEQ/15 ML UDC PO ONE (12:39)
[2021-12-07] MEDS ORDERED: cefTRIAXone 1,000 MG in Water for inj. (sterile) 10 ML IVP SCH (13:00)
[2021-12-07 13:47] LABS: Amphetamine Screen,Urine Negative ng/mL (Cutoff=1000); Barbiturate Screen,Urine Negative ng/mL (Cutoff=200); Benzodiazepines Screen,Urine Negative ng/mL (Cutoff=200); Cannabinoid Screen,Urine Positive ng/mL (Cutoff = 50); Cocaine Screen,Urine Negative ng/mL (Cutoff= 300); Opiate Screen,Urine Positive ng/mL (Cutoff=300); Phencyclidine Screen,Urine Negative ng/mL (Cutoff=25)
[2021-12-07] MEDS: *HR* Heparin 5,000 UNIT/ML VIAL SQ SCH ×2 (14:56→21:58)
[2021-12-07] MEDS: Doxycycline 100 MG in 0.9 % Sodium Chloride Mini Bag 100 ML IVPB SCH (17:30)
[2021-12-07] MEDS: Melatonin 3 MG TABLET PO PRN (21:57)
[2021-12-08 01:56] LABS: Basophils % 0.4 %; Eosinophils # 0.1 K/mcL (0.0-0.6); Eosinophils % 1.7 %; Hematocrit 34.2 % (37.5-50.1); Hemoglobin 11.3 g/dL (12.9-16.9); Immature Granulocytes % 0.5 % (0-4); Lymphocytes % 25.3 %; Mean Corpuscular Hemoglobin 29.4 pg (28.0-33.3); Mean Corpuscular Volume 88.8 fL (83.0-100.0); Mean Platelet Volume 10.6 fL (9.4-12.4); Monocytes # 0.7 K/mcL (0.0-1.3); Neutrophils # 4.9 K/mcL (1.6-8.9); Platelet Count 192 K/mcL (140-400); Red Blood Count 3.85 M/mcL (4.19-5.50); Red Cell Distribution Width 13.2 % (11.5-14.5); Segmented Neutrophils % 63.1 %; White Blood Count 7.8 K/mcL (4.3-11.1)
[2021-12-08 02:13] LABS: Calcium 8.8 mg/dL (8.6-10.3); Potassium 3.9 mEq/L (3.5-5.1)
[2021-12-08 02:15] LABS: % Iron Saturation 6 % (20-55); Iron 26 mcg/dL (65-175); Transferrin 305 mg/dL (203-362)
[2021-12-08 02:33] LABS: Ferritin 78 ng/mL (20-250)
[2021-12-08 02:39] LABS: Folate 20.4 ng/mL (3.0-16.0)
[2021-12-08] MEDS: Ipratropium/Albuterol Neb 3 ML IH SCH ×4 (04:35→20:22)
[2021-12-08] MEDS: *HR* HYDROcodone/Acet 5/325 mg TABLET PO PRN ×2 (06:28→15:36)
[2021-12-08] MEDS: *HR* Heparin 5,000 UNIT/ML VIAL SQ SCH ×3 (06:28→21:46)
[2021-12-08] MEDS: Doxycycline 100 MG in 0.9 % Sodium Chloride Mini Bag 100 ML IVPB SCH ×2 (06:30→17:01)
[2021-12-08] MEDS: Lactobacillus 1 EACH CAP.SPRINK PO SCH ×2 (07:45→21:46)
[2021-12-08] MEDS: lisinopriL 10 MG TABLET PO SCH (07:45)
[2021-12-08] MEDS: Furosemide 20 MG/2 ML VIAL IVP SCH ×2 (07:46→17:01)
[2021-12-08] MEDS: carvediloL 6.25 MG TABLET PO SCH ×2 (07:46→17:01)
[2021-12-08] MEDS: Multivit/Ca/Min/Fe/FA 1 TAB TABLET PO SCH (07:46)
[2021-12-08] MEDS: Artificial Tears SOLN 15 ML BOTTLE BOTH EYES SCH ×2 (07:47→21:47)
[2021-12-08 11:20] LABS: Procalcitonin 0.07 ng/mL (0.00-0.15)
[2021-12-08] MEDS: Melatonin 3 MG TABLET PO PRN (21:47)
[2021-12-09] MEDS: Ipratropium/Albuterol Neb 3 ML IH SCH ×2 (04:10→10:13)
[2021-12-09 05:40] LABS: Basophils # 0.1 K/mcL (0.0-0.2); Basophils % 0.9 %; Eosinophils # 0.1 K/mcL (0.0-0.6); Eosinophils % 1.9 %; Hematocrit 37.6 % (37.5-50.1); Hemoglobin 12.3 g/dL (12.9-16.9); Immature Granulocytes % 1.2 % (0-4); Lymphocytes # 2.3 K/mcL (0.6-4.6); Mean Corpuscular HGB Conc 32.7 g/dL (31.6-35.5); Mean Corpuscular Hemoglobin 29.8 pg (28.0-33.3); Mean Platelet Volume 11.2 fL (9.4-12.4); Monocytes # 0.7 K/mcL (0.0-1.3); Monocytes % 9.3 %; Neutrophils # 4.2 K/mcL (1.6-8.9); Platelet Count 169 K/mcL (140-400); Red Blood Count 4.13 M/mcL (4.19-5.50); Red Cell Distribution Width 13.2 % (11.5-14.5); Segmented Neutrophils % 55.7 %; White Blood Count 7.5 K/mcL (4.3-11.1)
[2021-12-09 05:59] LABS: Calcium 9.2 mg/dL (8.6-10.3); Potassium 3.7 mEq/L (3.5-5.1)
[2021-12-09] MEDS: *HR* Heparin 5,000 UNIT/ML VIAL SQ SCH (06:17)
[2021-12-09] MEDS: Doxycycline 100 MG in 0.9 % Sodium Chloride Mini Bag 100 ML IVPB SCH (06:17)
[2021-12-09 07:39] VITALS: BP 132/85; PULSE 81; TEMP 97.5
[2021-12-09] MEDS ORDERED: tiZANidine 4 MG TABLET PO PRN (08:31)
[2021-12-09] MEDS: Multivit/Ca/Min/Fe/FA 1 TAB TABLET PO SCH (08:35)
[2021-12-09] MEDS: Artificial Tears SOLN 15 ML BOTTLE BOTH EYES SCH (08:35)
[2021-12-09] MEDS: carvediloL 6.25 MG TABLET PO SCH (08:35)
[2021-12-09] MEDS: Furosemide 20 MG/2 ML VIAL IVP SCH (08:35)
[2021-12-09] MEDS: Lactobacillus 1 EACH CAP.SPRINK PO SCH (08:35)
[2021-12-09] MEDS: lisinopriL 10 MG TABLET PO SCH (08:35)
[2021-12-09] MEDS ORDERED: *HR* OxyCODONE Immed Rel 5 MG TABLET PO PRN (08:58)
[2021-12-09] MEDS ORDERED: Cholecalciferol (D-3) 1,000 UNIT (25MCG) TABLET PO SCH (09:00)
[2021-12-09] MEDS ORDERED: amLODIPine 5 MG TABLET PO SCH (09:00)
[2021-12-09 10:15] VITALS: O2SAT 94
[2021-12-09] MEDS ORDERED: clonazePAM 0.5 MG TABLET PO SCH (21:00)
== END 2021-12-09 11:30 | disposition home or self-care (01) ==
LOC: 3NENU 19:06 → EMEROOARM 19:06 → SUATTDRO 12-07 03:36 → 3NENU 12-07 04:00
PROVIDERS: ADMIT Internal Medicine; ATTEND Family Medicine

== ENCOUNTER 2022-01-04 19:36 | Inpatient (IN) ==
[2022-01-04] MEDS ORDERED: Iopamidol - 370 500 ML MLS IVP ONE (20:46)
[2022-01-04 21:10] LABS: Basophils # 0.1 K/mcL (0.0-0.2); Basophils % 0.5 %; Eosinophils # 0.1 K/mcL (0.0-0.6); Eosinophils % 1.3 %; Immature Granulocytes % 2.2 % (0-4); Lymphocytes # 2.7 K/mcL (0.6-4.6); Lymphocytes % 23.7 %; Mean Corpuscular HGB Conc 33.3 g/dL (31.6-35.5); Mean Corpuscular Hemoglobin 29.4 pg (28.0-33.3); Mean Corpuscular Volume 88.1 fL (83.0-100.0); Mean Platelet Volume 10.7 fL (9.4-12.4); Monocytes # 0.7 K/mcL (0.0-1.3); Monocytes % 6.1 %; Neutrophils # 7.4 K/mcL (1.6-8.9); Platelet Count 420 K/mcL (140-400); Red Blood Count 4.77 M/mcL (4.19-5.50); Red Cell Distribution Width 12.7 % (11.5-14.5); Segmented Neutrophils % 66.2 %; White Blood Count 11.2 K/mcL (4.3-11.1)
[2022-01-04 21:24] LABS: Albumin 4.3 g/dL (3.5-5.7); Albumin/Globulin Ratio 1.1 (1.1-2.2); Bilirubin,Direct 0.1 mg/dL (0.0-0.2); Bilirubin,Indirect 0.3 mg/dL (0.0-1.0); Bilirubin,Total 0.4 mg/dL (0.3-1.0); Potassium 4.1 mEq/L (3.5-5.1); Total Protein 8.3 g/dL (6.4-8.9)
[2022-01-04] MEDS ORDERED: 0.9 % Sodium Chloride 1,000 ML IV ONE (23:32)
[2022-01-05] MEDS ORDERED: Naloxone 0.4 MG/ML INJ IVP PRN (01:02)
[2022-01-05] MEDS ORDERED: Ondansetron ODT 4 MG TAB.RAPDIS SL PRN (01:02)
[2022-01-05] MEDS ORDERED: Melatonin 3 MG TABLET PO PRN (01:02)
[2022-01-05] MEDS ORDERED: Vancomycin 1,500 MG/265 ML IV.SOLN IVPB ONE (02:00)
[2022-01-05 02:07] LABS: Amphetamine Screen,Urine Positive ng/mL (Cutoff=1000); Barbiturate Screen,Urine Negative ng/mL (Cutoff=200); Benzodiazepines Screen,Urine Negative ng/mL (Cutoff=200); Cannabinoid Screen,Urine Positive ng/mL (Cutoff = 50); Cocaine Screen,Urine Negative ng/mL (Cutoff= 300); Opiate Screen,Urine Negative ng/mL (Cutoff=300); Phencyclidine Screen,Urine Negative ng/mL (Cutoff=25)
[2022-01-05 02:33] LABS: Clarity,Urine Clear (Clear); Color,Urine LIGHT YELLOW (Yellow); Glucose,Urine (UA) Normal (Normal)
[2022-01-05 02:34] LABS: Bilirubin,Urine Negative (Negative); Blood,Urine Trace (Negative); Ketones,Urine Trace mg/dL (Negative); Leukocyte Esterase,Urine Negative (Negative); Nitrite,Urine Negative (Negative); Protein,Urine 30 mg/dL (Neg-Trace); RBC,Urine 0-3 per hpf (0-3); Specific Gravity,Urine 1.017 (1.010-1.025); Urobilinogen,Urine Normal (Normal)
[2022-01-05 02:35] LABS: Hyaline Casts,Urine Few per lpf (None Seen); Mucus,Urine Few per lpf (None-Few)
[2022-01-05 04:30] LABS: Basophils # 0.1 K/mcL (0.0-0.2); Basophils % 0.5 %; Eosinophils # 0.1 K/mcL (0.0-0.6); Eosinophils % 1.1 %; Hematocrit 42.2 % (37.5-50.1); Hemoglobin 13.4 g/dL (12.9-16.9); Immature Granulocytes % 1.3 % (0-4); Lymphocytes # 1.8 K/mcL (0.6-4.6); Lymphocytes % 14.5 %; Mean Corpuscular HGB Conc 31.8 g/dL (31.6-35.5); Mean Corpuscular Hemoglobin 28.3 pg (28.0-33.3); Mean Platelet Volume 11.2 fL (9.4-12.4); Monocytes # 0.8 K/mcL (0.0-1.3); Monocytes % 6.7 %; Neutrophils # 9.3 K/mcL (1.6-8.9); Platelet Count 238 K/mcL (140-400); Red Blood Count 4.74 M/mcL (4.19-5.50); Red Cell Distribution Width 12.7 % (11.5-14.5); Segmented Neutrophils % 75.9 %; White Blood Count 12.3 K/mcL (4.3-11.1)
[2022-01-05 04:37] LABS: INR 1.2; Prothrombin Time 13.2 Seconds (9.4-12.1)
[2022-01-05 04:40] LABS: Activated Partial Thrombo Time 26.9 Seconds (26.0-36.0)
[2022-01-05 04:49] LABS: Calcium 9.3 mg/dL (8.6-10.3); Magnesium 2.4 mg/dL (1.6-2.6); Phosphorous 4.4 mg/dL (2.7-4.5); Potassium 4.1 mEq/L (3.5-5.1)
[2022-01-05] MEDS: Piperacillin/Tazobactam 3.375 GM in 0.9 % Sodium Chloride Mini Bag 100 ML IVPB SCH ×2 (06:01→17:18)
[2022-01-05] MEDS ORDERED: Ringers Solution, Lactated 1,000 ML IVC SCH (06:30)
[2022-01-05] MEDS ORDERED: D5% in Water 1,000 ML IVC PRN (06:55)
[2022-01-05] MEDS ORDERED: Dextrose Gel 15 GM/37.5 ML TUBE PO PRN ×2 (06:55)
[2022-01-05] MEDS ORDERED: *HR* Dextrose 50 % in Water (Syg) 50 ML SYRINGE IVP PRN (06:55)
[2022-01-05] MEDS: amLODIPine 5 MG TABLET PO SCH (07:34)
[2022-01-05] MEDS: carvediloL 6.25 MG TABLET PO SCH ×2 (07:34→17:17)
[2022-01-05] MEDS: Lactobacillus 1 EACH CAP.SPRINK PO SCH ×2 (07:35→22:09)
[2022-01-05] MEDS ORDERED: dexmedeTOMIDine in 0.9 % NaCL 80 MCG/20 ML MLS ONE (09:08)
[2022-01-05] MEDS ORDERED: Haloperidol Lactate 5 MG/ML VIAL ONE (09:09)
[2022-01-05] MEDS ORDERED: Lidocaine -MPF 2% 5 ML VIAL ONE (10:08)
[2022-01-05] MEDS ORDERED: *HR* Propofol 200 MG/20 ML VIAL IVP ONE (10:08)
[2022-01-05] MEDS ORDERED: Ondansetron 4 MG/2 ML VIAL ONE (10:08)
[2022-01-05] MEDS ORDERED: *HR* FentaNYL (PF) 100 MCG/2 ML VIAL ONE (10:08)
[2022-01-05] MEDS ORDERED: *HR* Rocuronium Bromide 50 MG/5 ML VIAL ONE (10:08)
[2022-01-05] MEDS ORDERED: *HR* HYDROmorphone PF 0.5 MG/0.5 ML SYRINGE IVP PRN (10:12)
[2022-01-05] MEDS ORDERED: EPHEDrine 50 MG/ML VIAL ONE (10:57)
[2022-01-05] MEDS: *HR* Heparin 5,000 UNIT/ML VIAL SQ SCH ×2 (14:55→22:09)
[2022-01-05] MEDS: 0.9 % Sodium Chloride 1,000 ML IVC SCH (17:17)
[2022-01-05] MEDS: Acetaminophen 325 MG TABLET PO PRN (22:12)
[2022-01-06] MEDS: Piperacillin/Tazobactam 3.375 GM in 0.9 % Sodium Chloride Mini Bag 100 ML IVPB SCH (05:58)
[2022-01-06] MEDS: *HR* Heparin 5,000 UNIT/ML VIAL SQ SCH ×3 (05:58→20:16)
[2022-01-06 06:28] LABS: Basophils # 0.1 K/mcL (0.0-0.2); Basophils % 0.4 %; Hematocrit 39.3 % (37.5-50.1); Hemoglobin 12.7 g/dL (12.9-16.9); Immature Granulocytes % 2.1 % (0-4); Lymphocytes # 1.6 K/mcL (0.6-4.6); Lymphocytes % 10.7 %; Mean Corpuscular HGB Conc 32.3 g/dL (31.6-35.5); Mean Corpuscular Hemoglobin 29.3 pg (28.0-33.3); Mean Corpuscular Volume 90.6 fL (83.0-100.0); Monocytes # 0.6 K/mcL (0.0-1.3); Monocytes % 3.8 %; Platelet Count 330 K/mcL (140-400); Red Blood Count 4.34 M/mcL (4.19-5.50); Red Cell Distribution Width 12.8 % (11.5-14.5); White Blood Count 14.4 K/mcL (4.3-11.1)
[2022-01-06 07:09] LABS: Calcium 9.1 mg/dL (8.6-10.3); Potassium 4.3 mEq/L (3.5-5.1)
[2022-01-06] MEDS ORDERED: Vancomycin 1,500 MG/265 ML IV.SOLN IVPB SCH (08:00)
[2022-01-06] MEDS: Lactobacillus 1 EACH CAP.SPRINK PO SCH ×2 (09:08→20:16)
[2022-01-06] MEDS: amLODIPine 5 MG TABLET PO SCH (09:08)
[2022-01-06] MEDS: carvediloL 6.25 MG TABLET PO SCH ×2 (09:08→17:11)
[2022-01-06] MEDS: Acetaminophen 325 MG TABLET PO PRN (09:20)
[2022-01-06] MEDS ORDERED: *HR* HYDROcodone/Acet 5/325 mg TABLET PO PRN (10:32)
[2022-01-06] MEDS: 0.9 % Sodium Chloride 1,000 ML IVC SCH (17:14)
[2022-01-06] MEDS: *HR* HYDROcodone/Acet 5/325 mg TABLET PO PRN (18:36)
[2022-01-07] MEDS: *HR* HYDROcodone/Acet 5/325 mg TABLET PO PRN ×2 (03:41→11:27)
[2022-01-07] MEDS: *HR* Heparin 5,000 UNIT/ML VIAL SQ SCH ×2 (06:09→14:12)
[2022-01-07 07:08] LABS: Calcium 9.1 mg/dL (8.6-10.3); Potassium 5.4 mEq/L (3.5-5.1)
[2022-01-07] MEDS: amLODIPine 5 MG TABLET PO SCH (07:46)
[2022-01-07] MEDS: Lactobacillus 1 EACH CAP.SPRINK PO SCH (07:46)
[2022-01-07] MEDS: carvediloL 6.25 MG TABLET PO SCH (07:46)
[2022-01-07 09:27] LABS: Hematocrit 35.9 % (37.5-50.1); Hemoglobin 11.5 g/dL (12.9-16.9); Mean Corpuscular Hemoglobin 28.6 pg (28.0-33.3); Mean Corpuscular Volume 89.3 fL (83.0-100.0); Mean Platelet Volume 9.5 fL (9.4-12.4); Platelet Count 324 K/mcL (140-400); Red Blood Count 4.02 M/mcL (4.19-5.50); Red Cell Distribution Width 12.8 % (11.5-14.5); White Blood Count 8.1 K/mcL (4.3-11.1)
[2022-01-07 10:27] LABS: Lymphocytes # 3.5 K/mcL (0.6-4.6); Monocytes # 0.3 K/mcL (0.0-1.3); Neutrophils # 4.1 K/mcL (1.6-8.9)
[2022-01-07 10:28] LABS: Platelet Estimate Normal (Normal)
[2022-01-07 11:22] VITALS: BP 137/84; PULSE 73; TEMP 98.2; O2SAT 98
[2022-01-07] MEDS ORDERED: SODIUM ZIRCONIUM CYCLOSILICATE 5 GM POWD.PACK PO ONE (12:50)
[2022-01-07] MEDS ORDERED: Vancomycin 1,250 MG/262.5 ML IV.SOLN IVPB SCH (13:00)
[2022-01-07 13:59] LABS: Calcium 9.5 mg/dL (8.6-10.3); Potassium 4.1 mEq/L (3.5-5.1)
[2022-01-07] MEDS ORDERED: Flu Vac QV 22-23 (6MOS UP)/PF 0.5 ML SYRINGE IM ONE (16:00)
== END 2022-01-07 16:56 | disposition home health service (06) | DRG 571 ==
LOC: 4WAOSI 19:36 → EMEROOARM 19:36 → 4WAOSI 01-05 00:47 → SUATTDRO 01-05 16:40
PROVIDERS: ADMIT Internal Medicine; ATTEND General Practice